=== PATIENT | male | born 1975 | race Caucasian/White ===

== ENCOUNTER 2018-08-22 08:09 | Outpatient (CLI) | payer BC ==
--- NOTE | 2018-08-22 09:48 | ULT ---
SONOGRAM ABDOMEN COMPLETE: Date: 08/22/18 HISTORY: Anemia. Fatty liver. Abdominal pain. FINDINGS: Shadowing stones are present within the gallbladder lumen. No gallbladder wall thickening or perichol ecystic fluid. Common duct is not well delineated. Not seen to be dilated. Liver is diffusely echogen ic without focal mass or intrahepatic biliary dilatation. No free fluid. Spleen is 19.6 cm without fo niurka abnormality. Shadowing echogenicity at the collecting system of each kidney have the appearance o f nonobstructing calculi. Visualized portions of the abdominal aorta, IVC, and pancreas are unremarka ble. IMPRESSION: 1. Hepatosteatosis without focal abnormality. 2. Severe splenomegaly could be related to portal venous hypertension. 3. Cholelithiasis. No evidence of acute biliary obstruction. 4. Probable nonobstructing bilateral renal calculi. POS: [facility]
== END 2018-08-22 08:10 | disposition home or self-care (01) ==
LOC: SCSULT 08:09
PROVIDERS: ATTEND Internal Medicine
DX: D50.9 Iron deficiency anemia, unspecified (principal); K76.0 Fatty (change of) liver, not elsewhere classified; K80.20 Calculus of gallbladder without cholecystitis without obstruction; R16.1 Splenomegaly, not elsewhere classified
CPT/HCPCS: 76700

== ENCOUNTER 2019-04-16 07:41 | Inpatient (IN) | payer BC ==
[2019-04-16 08:28] LABS: Anion Gap 11 mmol/L (10-20); BUN (Urea Nitrogen) 23 mg/dL (8.9-20.6); Calc. Creatinine Clearance 0 mL/min (70-130); Calcium 8.3 mg/dL (7.8-10.44); Carbon Dioxide 22 mmol/L (22-29); Chloride 107 mmol/L (98-107); Estimated GFR-MDRD Greater than 90; Glucose 124 mg/dL (70-105); Potassium 4.1 mmol/L (3.5-5.1); Sodium 136 mmol/L (136-145)
[2019-04-16 09:07] LABS: #Lymphocytes 0.9 thou/uL (1.20-3.40); #Monocytes 0.4 thou/uL (0.11-0.59); #Neutrophils 3.2 thou/uL (1.40-6.50); %Basophils 0.3 % (0.0-1.0); %Eosinophils 0.8 % (0.0-10.0); %Lymphocytes 19.2 % (21.0-51.0); %Monocytes 8.9 % (0.0-10.0); %Neutrophils 70.8 % (42.0-75.0); Hemoglobin 8.3 g/dL (14.0-18.0); Hypochromia SLIGHT = 6-15 cells (100X) (0-5/hpf); MDiff Complete? YES; Mean Corpuscular HGB CONC 31.7 g/dL (32.0-36.0); Mean Corpuscular Hemoglobin 22.7 pg (27.0-31.0); Mean Corpuscular Volume 71.5 fL (78.0-98.0); Mean Platelet Volume 9.1 fL (7.4-10.4); Microcytosis MODERATE=15-30 cells (100X) (0-5/hpf); Ovalocytes SLIGHT = 2-5 cells (100X) (0-1/hpf); Platelet Count 104 thou/uL (130-400); Platelet Morphology Comment Appears Decreased; Polychromasia SLIGHT = 2-3 cells (100X) (0-2/hpf); RBC Distribution Width 16.3 % (11.5-14.5); Red Blood Cell (RBC) Count 3.67 mill/uL (4.70-6.10); White Blood Cell (WBC) Count 4.5 thou/uL (4.8-10.8)
[2019-04-16] MEDS ORDERED: Ondansetron ODT 4 MG TAB PO PRN (10:05)
[2019-04-16] MEDS ORDERED: Calcium Carbonate 500 MG ChewTAB PO PRN (10:05)
[2019-04-16] MEDS ORDERED: Ondansetron PF 4 MG/2 ML Vial IVP PRN (10:05)
[2019-04-16] MEDS ORDERED: Cyanocobalamin (Vitamin B-12) 1,000 MCG TAB PO SCH ×2 (10:15→12:45)
[2019-04-16] MEDS ORDERED: Folic Acid 1 MG TAB PO SCH ×2 (10:15→12:45)
[2019-04-16] MEDS ORDERED: Iron Sucrose Complex 200 MG in Sodium Chloride 0.9% 250 ML 250 ML IVPB SCH (10:30)
[2019-04-16] MEDS ORDERED: Iron, Sodium Ferric Gluconate 250 MG in Sodium Chloride 0.9% 100 ML IVPB SCH (11:30)
[2019-04-16 12:12] LABS: Hemoglobin 8.9 g/dL (14.0-18.0); Platelet Count 57 thou/uL (130-400)
[2019-04-16 12:24] LABS: INR-International Normal Ratio 1.2; PTT 30.7 SEC (22.9-36.1); Prothrombin Time 15.2 SEC (12.0-14.7)
[2019-04-16 12:27] LABS: Hemoglobin 8.9 g/dL (14.0-18.0); Mean Corpuscular HGB CONC 30.3 g/dL (32.0-36.0); Mean Corpuscular Hemoglobin 22.1 pg (27.0-31.0); Mean Corpuscular Volume 73.1 fL (78.0-98.0); Mean Platelet Volume 11.5 fL (7.4-10.4); Platelet Count 57 thou/uL (130-400); RBC Distribution Width 16.6 % (11.5-14.5); Red Blood Cell (RBC) Count 4.03 mill/uL (4.70-6.10); White Blood Cell (WBC) Count 5.8 thou/uL (4.8-10.8)
[2019-04-16 12:45] VITALS: BMI 39.4
[2019-04-16] MEDS: Sodium Chloride 0.9% 1,000 ML IV SCH ×2 (12:45→19:17)
[2019-04-16 12:47] LABS: Iron 41 ug/dL (65-175); Iron Binding Capacity, Total 479 mcg/dL (261-462)
[2019-04-16 12:56] LABS: Band 1 % (5-11); Burr Cells SLIGHT = 2-5 cells (100X) (0-1/hpf); Hypochromia SLIGHT = 6-15 cells (100X) (0-5/hpf); Lymphocytes 20 % (21-51); MDiff Complete? YES; Microcytosis MODERATE=15-30 cells (100X) (0-5/hpf); Neutrophil 79 % (42-75); Ovalocytes SLIGHT = 2-5 cells (100X) (0-1/hpf); Platelet Morphology Comment Appears Decreased; Polychromasia SLIGHT = 2-3 cells (100X) (0-2/hpf)
[2019-04-16 13:14] LABS: ALT (SGPT) 20 U/L (8-55); AST (SGOT) 26 U/L (5-34); Albumin 3.7 g/dL (3.5-5.0); Alkaline Phosphatase 103 U/L (40-110); Bilirubin, Direct 0.4 mg/dL (0.1-0.3); Bilirubin, Total 0.9 mg/dL (0.2-1.2); Magnesium 1.8 mg/dL (1.6-2.6); Protein, Total 6.7 g/dL (6.0-8.3)
[2019-04-16 16:35] LABS: Hemoglobin 7.2 g/dL (14.0-18.0)
--- NOTE | 2019-04-16 19:48 | HP ---
PRIMARY CARE PHYSICIAN: Navjot. CHIEF COMPLAINT: Melena. HISTORY OF PRESENT ILLNESS: Mr. Manzanares is a 44-year-old man with a past medical history of PVCs, gastroesophageal reflux disease, and history of kidney stones, presents to the ED earlier today due to abdominal discomfort and melena over the last 2 days. He states that he had noticed a large plaque and bloody stool when he would go to the bathroom. He states that over the last year he has been taking oral iron for iron supplementation. He also reports that he has a history of a low hemoglobin that he has been followed by GI, who had wanted to perform a colonoscopy; however, he has not been able to schedule it due to various reasons. He states that he had to reschedule, but has not been able to go through with this procedure. He denied any fever, chills, any headache, blurred vision, dizziness, chest pain, palpitations, or shortness of breath. His hemoglobin on arrival was found to be 8.3, which had then improved to 8.9 on repeat. However, his platelets were also low at 104 and trended down to 57. His other lab work indicated an iron of 41 and a ferritin of 4.33. Therefore, he was started on IV iron infusion along with some IV fluids with normal saline. REVIEW OF SYSTEMS: All other systems reviewed and found to be negative unless mentioned in the HPI. PAST MEDICAL HISTORY: PVCs, GERD, and kidney stones. PAST SURGICAL HISTORY: Appendectomy. PSYCHIATRIC HISTORY: Anxiety. SOCIAL HISTORY: The patient denies alcohol, tobacco, or illicit drug use. KNOWN ALLERGIES: No known drug allergies. CURRENT HOME MEDICATIONS: 1. Omeprazole 20 mg oral daily. 2. Metoprolol 50 mg daily. PHYSICAL EXAMINATION: VITAL SIGNS: Blood pressure 108/69, pulse 96, respirations 18, temperature 98.5, and O2 saturation 100% on room air. GENERAL: The patient is awake, alert, and oriented x3. He is currently lying comfortably in bed and in no acute distress. His family is at bedside. HEENT: Atraumatic and normocephalic. Pupils are round and reactive to light. Extraocular muscles intact. Moist mucous membranes noted. NECK: Soft, supple. Trachea midline. CARDIOVASCULAR: Positive S1 and S2. Regular rate and rhythm. No murmur auscultated. RESPIRATORY: Clear to auscultation bilaterally. No wheezes, rales, or rhonchi. ABDOMEN: Soft, nontender. Bowel sounds present. EXTREMITIES: Moves all extremities equal. Pedal and radial pulses 2+ bilaterally. No edema noted. NEUROLOGIC: Cranial nerves 2 through 12 grossly intact. No focal deficits noted. Speech intact and normal. Gait not assessed. SKIN: Warm, dry, and intact. No rashes. No ulceration noted. PSYCHIATRIC: Good mood and affect. LABORATORY DATA: WBC 5.8, RBC 4.03, hemoglobin 8.9, hematocrit 29.4, and platelets 57. Reticulocyte count 3.0. PT 15.2, INR 1.2, PTT 30.7. Sodium 136, potassium 4.1, anion gap 11, BUN 23, creatinine 0.80, estimated GFR greater than 90, glucose 124. Iron 41, TIBC 479, ferritin 4.33. Magnesium 1.8, calcium 8.3, total bilirubin 0.9, direct bilirubin 0.4, AST 26, ALT 20. Vitamin B12 of 314, folate 18.9. DIAGNOSTIC IMAGING: None. ASSESSMENT AND PLAN: 1. Possible gastrointestinal bleed due to the patient's symptoms of melena and decreased hemoglobin. We will trend H and H and treat with IV iron, and if his hemoglobin trends down, we will transfuse with packed red blood cells as needed. A consult is placed for GI Services, Dr. Saleh, and we will wait for further recommendations. We will also start the patient on a PPI. 2. History of premature ventricular contractions, currently in sinus rhythm at this time. 3. History of gastroesophageal reflux disease. Continue PPI. 4. History of kidney stones, currently stable at this time. 5. Gastrointestinal prophylaxis. 6. Code status. Full code. DISPOSITION: Pending further workup and clinical findings. Job ID: [id number]
[2019-04-16] MEDS ORDERED: GoLYTELY 4,000 ml Bottle PO SCH (23:44)
[2019-04-16] MEDS ORDERED: Pantoprazole 40 MG VIAL IVP SCH (23:44)
[2019-04-17] MEDS: Sodium Chloride 0.9% 1,000 ML IV SCH ×2 (00:06→12:13)
[2019-04-17] MEDS: Pantoprazole 80 MG in Sodium Chloride 0.9% 100 ML IVP SCH ×2 (00:10→23:42)
--- NOTE | 2019-04-17 00:41 | CON ---
DATE OF CONSULTATION: 04/16/2019 CHIEF COMPLAINT: Blood in stool. HISTORY OF PRESENT ILLNESS: Mr. Manzanares is a 44-year-old man, who has had iron deficiency over the last year. He was evaluated by Dr. Sapp back in August for iron-deficiency anemia and upper and lower endoscopy were advised, however, the patient is not yet scheduled. The patient canceled the procedure multiple times. Last night, he developed some cramping, epigastric discomfort and has passed black stool last night and then multiple black stools later this afternoon mixed with red blood. He has had no vomiting, but some mild nausea. As he developed further bleeding this afternoon, he noted some dizziness and lightheadedness upon sitting up or standing. He received a unit transfusion and orthostatic symptoms improved. He has had no prior overt bleeding. PAST MEDICAL HISTORY: Gastroesophageal reflux disease, kidney stones, PVC. PAST SURGICAL HISTORY: Appendectomy. FAMILY HISTORY: Negative for GI malignancy. SOCIAL HISTORY: No alcohol, tobacco, or drugs. ALLERGIES: NO KNOWN DRUG ALLERGIES. MEDICATIONS: Prior to admission, he takes omeprazole 2 or 3 days per week. Metoprolol 50 mg daily. REVIEW OF SYSTEMS: Negative x10 systems reviewed except as stated in the history of present illness. PHYSICAL EXAMINATION: VITAL SIGNS: Temperature 98.7, blood pressure 114/73, pulse 93. GENERAL: He is in no acute distress. He is pale. Alert and oriented x3. HEENT: Eyes have no scleral icterus. Oropharynx is clear without lesions. No cervical or supraclavicular lymphadenopathy. LUNGS: Clear to auscultation bilaterally. HEART: Regular rate and rhythm without murmur. ABDOMEN: Soft, nontender, and nondistended. Bowel sounds are present. EXTREMITIES: No lower extremity edema. He did have a bowel movement that I viewed that was very dark red mix with churn operator red blood in the toilet water. LABORATORY DATA: Hemoglobin this morning was 8.3 with an MCV of 71. Repeat hemoglobin this afternoon was 7.2. He received 1 unit transfusion after that. INR 1.2. White blood cell count 5.8, platelets 57, MCV 73, bilirubin 0.9, AST 26, ALT 20, alkaline phosphatase 103, albumin 3.7, iron 41, TIBC 479, ferritin 4.3, creatinine 0.8, BUN 23. IMPRESSION: 1. Acute gastrointestinal bleed with very dark stool mixed with red stool concerning for an upper source. He did develop an episode of tachycardia and orthostatic symptoms this afternoon. These improved after transfusion. 2. Anemia of acute blood loss. His hemoglobin was around 12 back in August when he still had known iron deficiency anemia. It is unclear how much of his hemoglobin has dropped, but how rapidly between now and then. He does have significant overt bleeding now, which has been hemodynamically significant this afternoon. I will give him an additional unit of blood now and move him to the [facility]. 3. He has had mild pancytopenia with worsening thrombocytopenia. He does not have known cirrhosis at this point. He did have an ultrasound obtained by Dr. Sapp back in August that showed fatty liver and cholelithiasis and possibly splenomegaly. His albumin and bilirubin and creatinine are normal. RECOMMENDATIONS: 1. Start proton pump inhibitor drip with bolus and then drip. 2. We will plan for EGD and colonoscopy tomorrow with Dr. Sapp. 3. Given an additional unit of blood now and will follow the trend of his hemoglobin. 4. Transferred to [facility]. Job ID: [id number] MTDD
[2019-04-17 00:43] LABS: Hemoglobin 7.6 g/dL (14.0-18.0)
[2019-04-17 06:01] LABS: #Lymphocytes 0.9 thou/uL (1.20-3.40); #Monocytes 0.8 thou/uL (0.11-0.59); #Neutrophils 6.3 thou/uL (1.40-6.50); %Basophils 0.1 % (0.0-1.0); %Eosinophils 0.5 % (0.0-10.0); %Lymphocytes 11.3 % (21.0-51.0); %Monocytes 9.3 % (0.0-10.0); %Neutrophils 78.7 % (42.0-75.0); Hemoglobin 8.2 g/dL (14.0-18.0); Mean Corpuscular HGB CONC 31.7 g/dL (32.0-36.0); Mean Corpuscular Hemoglobin 24.2 pg (27.0-31.0); Mean Corpuscular Volume 76.4 fL (78.0-98.0); Mean Platelet Volume 8.7 fL (7.4-10.4); Platelet Count 109 thou/uL (130-400); RBC Distribution Width 18.3 % (11.5-14.5); White Blood Cell (WBC) Count 8.1 thou/uL (4.8-10.8)
[2019-04-17 06:18] LABS: Anion Gap 13 mmol/L (10-20); BUN (Urea Nitrogen) 17 mg/dL (8.9-20.6); Calc. Creatinine Clearance 193 mL/min (70-130); Carbon Dioxide 17 mmol/L (22-29); Chloride 109 mmol/L (98-107); Estimated GFR-MDRD Greater than 90; Glucose 147 mg/dL (70-105); Potassium 4.3 mmol/L (3.5-5.1); Sodium 135 mmol/L (136-145)
--- NOTE | 2019-04-17 07:57 | PRG ---
DATE OF SERVICE: 04/17/2019 SUBJECTIVE: The patient is seen and examined at the bedside. He has some abdominal cramps in the epigastric area. He had a little bit of bloody vomiting few hours ago. Otherwise, he is feeling okay, just tired. OBJECTIVE: VITAL SIGNS: Blood pressure is 103/84, pulse is 110-115. LUNGS: Clear. HEART: S1, S2. Tachycardic. No S3. No S4. ABDOMEN: Soft, nontender, nondistended. EXTREMITIES: No clubbing, cyanosis, or edema. NEUROLOGICAL: Examination is intact. LABORATORY DATA: Showed white count of 8.1, hemoglobin 8.2, hematocrit 26.0, and platelet count is 109. Chemistry shows sodium of 135, potassium 4.3, chloride 109, CO2 of 17, BUN 17, creatinine 0.75, glucose 147, and calcium is 8.0. IMPRESSION: 1. Gastrointestinal bleeding, most likely from the upper parts. He is on Protonix drip. He is scheduled for EGD this morning. He had 2 units of packed red blood cells transfused yesterday. 2. History of premature ventricular contractions, on metoprolol at home. 3. History of gastroesophageal reflux disease. 4. History of kidney stones, chronic, stable. 5. Thrombocytopenia, improved since the time of admission. Platelet count is up to 109 this morning. PLAN: EGD this morning. Continue IV fluids. Continue p.r.n. transfusion of packed red blood cells. Continue PPI and drip. Job ID: [id number]
[2019-04-17] MEDS: Cyanocobalamin (Vitamin B-12) 1,000 MCG TAB PO SCH (08:32)
[2019-04-17] MEDS: Folic Acid 1 MG TAB PO SCH (08:32)
[2019-04-17] MEDS ORDERED: Ondansetron HCl/PF 4 MG/2 ML Vial IVP PRN (08:54)
[2019-04-17] MEDS ORDERED: Iron Sucrose Complex 200 MG in Sodium Chloride 0.9% 250 ML 250 ML IVPB SCH (09:00)
--- NOTE | 2019-04-17 11:56 | OP ---
DATE OF PROCEDURE: 04/17/2019 PROCEDURES PERFORMED: Esophagogastroduodenoscopy with band ligation x6, colonoscopy with polypectomy, and control of hemorrhage. INDICATION FOR PROCEDURES: Hematemesis, melena. DESCRIPTION OF PROCEDURE: After the risks and benefits of the procedures were explained to the patient including risks of bleeding, infection, perforation, reactions to anesthesia, aspiration and/or pain, informed consent was obtained. The patient was then taken to the endoscopy suite, where deep sedation was administered via propofol and anesthesia support. Once adequate sedation was achieved, the patient was maneuvered into the left lateral decubitus position in anticipation of the upper endoscopy. Once in adequate position, the standard gastroscope was introduced into the mouth with intubation of the esophagus, stomach, and the proximal small intestines with the findings listed below. The patient tolerated this portion of the procedure well with no immediate perioperative complications. Upon conclusion of the procedure, all equipment was removed from the patient and the bed was rotated 180 degrees in anticipation of the colonoscopy. After a digital rectal examination was performed, the standard colonoscope was introduced into the rectum and advanced to the terminal ileum without difficulty. The quality of the prep was poor with a large amount of dark black adherent stool seen throughout the entire colon limiting visualization of the colonic mucosa. However, the views were adequate for evaluation of possible bleeding source. The patient tolerated this portion of the procedure well with no immediate perioperative complications. Upon conclusion of this portion of the procedure, all equipment was removed from the patient and he was transferred to PACU in satisfactory condition. EGD FINDINGS: Esophagus: Normal-appearing mucosa was seen in the proximal esophagus; however, esophageal varices were seen in the distal esophagus and extending into the mid esophagus. The distal esophageal varices were considered large (grade 3) that did exhibit red jean sign on two separate variceal columns at the gastroesophageal junction. There was also a varix there that did exhibit mild oozing of blood indicative of a possible GI bleeding source. Band ligation x6 was then performed with good hemostasis achieved and no observed bleeding afterwards. Otherwise, there was no evidence of erosions, ulcerations, mass, or lesions within the esophagus. Stomach: Mild diffuse mucosal erythema was seen throughout the entire stomach in a mosaic type pattern, but did not exhibit any additional abnormalities. There was no evidence of erosions, ulcerations, mass, lesions, or active/recent bleeding. A small gastric varix was seen on gastric retroflexion, but did not appear to have any evidence of active or recent GI bleeding. Duodenum: Normal-appearing mucosa was seen in both the duodenal bulb and second portion of the duodenum. There was no evidence of erosions, ulcerations, mass, lesions, or active/recent bleeding. IMPRESSION: 1. Large (grade 3) distal esophageal varices with high-risk stigmata bleeding, now status post band ligation x6. 2. Small gastric varix. 3. [id number] portal hypertensive gastropathy. COLONOSCOPY FINDINGS: Digital rectal exam: Normal findings were seen on external examination. Colon findings: A [id number] amount of adhered black stool was seen throughout the entire colon, especially within the distal colon and less so within the proximal colon. However, adequate visualization of the colonic mucosa was achieved for the evaluation of possible GI bleeding source, but inadequate for the evaluation of small mucosal lesions. Of the mucosa visualized, small black clot material was seen within the terminal ileum and extending into the cecum itself; however, the colonic mucosa exhibited mild friability to suctioning with suction hematoma was made that exhibited some mild oozing of blood, but no evidence of increased bleeding. Otherwise, normal-appearing mucosa was seen at the ileocecal valve, appendiceal orifice, cecum, ascending, transverse, descending, and sigmoid colons. A 1.5 cm semi-pedunculated polyp was seen in the rectum and completely removed with snare cautery polypectomy. It was retrieved and placed in a specimen jar for evaluation. Given his recent GI bleeding and the larger mucosal defect made, hemoclip x2 was used to approximate the mucosal defect with good hemostasis achieved. Small internal hemorrhoids were then seen on rectal retroflexion. IMPRESSION: 1. A large amount of black adherent stool was seen throughout the entire colon limiting visualization for small mucosal lesions, but adequate for the evaluation of gastrointestinal bleeding. 2. Dark clot material was seen within the terminal ileum, making an upper gastrointestinal bleeding source more likely. 3. A 1.5 cm rectal polyp, status post snare cautery polypectomy and hemoclip x2. 4. Small internal hemorrhoids (nonbleeding). RECOMMENDATIONS: 1. We will continue to trend the patient's H and H and transfuse as necessary to maintain an H and H of 7/21. 2. Continue to monitor clinically for signs of active GI bleeding. 3. Would continue pantoprazole drip for the next 24 hours and then transfer to 40 mg b.i.d. 4. Would place the patient on octreotide drip given the evidence of bleeding esophageal varices and continue this therapy for approximately 48 to 72 hours. 5. Would advance the patient's diet to clear liquids and advance slowly over the next few days. 6. The patient will need a CT scan of the liver during this hospitalization for further evaluation of possible cirrhosis and/or portal hypertension. 7. We will follow up on the biopsy results with repeat colonoscopy recommended within 1 year, given the poor colonic preparation seen today. We will continue to follow. Please call with any questions. Job ID: [id number]
[2019-04-17] MEDS: Iron, Sodium Ferric Gluconate 250 MG in Sodium Chloride 0.9% 250 ML 250 ML IVPB SCH (12:12)
[2019-04-17] MEDS: Acetaminophen 325 MG TAB PO PRN ×2 (12:14→21:57)
[2019-04-17] MEDS: Fentanyl 100 MCG/2 ML VIAL SLOW IVP PRN ×5 (12:14→21:57)
[2019-04-17] MEDS ORDERED: cefTRIAXone Sodium 2 MG in Syringe 0 ML IVPB SCH (13:18)
[2019-04-17] MEDS ORDERED: Octreotide Acetate 1,250 MCG in Sodium Chloride 0.9% 250 ML 250 ML IVPB SCH (13:18)
[2019-04-17] MEDS: cefTRIAXone\\ROCEPHIN 2 GM in Sodium Chloride 0.9% 100 ML IVPB SCH (16:39)
--- NOTE | 2019-04-17 17:59 | CT ---
EXAM: Abdomen and pelvic CT scan with contrast: HISTORY: Esophageal varices COMPARISON: 05/04/2014 FINDINGS: The visualized lung bases are clear. Liver: Nodular morphology of the liver with mild generalized heterogeneous density. Gallbladder: Moderately distended gallbladder with multiple calcified gallstones. There is pericholec ystic edema Pancreas: Unremarkable Spleen: Enlarged spleen with splenic varices Adrenal glands: Unremarkable. Kidneys: There is a punctate bilateral nephrolithiasis. Small parenchymal hypodensity of the posterio r right kidney is not confirmed as a simple cyst on the basis of this exam. No hydronephrosis. Bowel: Diffuse bowel wall thickening involving the colon with pericolonic fat stranding. Loops of sma ll bowel also demonstrate wall thickening as does the stomach. Associated edema of the intra-abdominal fat and mild ascites is present. There is a radiopaque linear density of the sigmoid colon not further characterized. Mild esophageal varices are seen. Urinary Bladder: The urinary bladder is unremarkable. Adenopathy: No adenopathy within the abdomen or pelvis. Free Air: No free air. Ascites: Mild ascites of the abdomen and pelvis. Fat-containing ventral abdominal wall hernia to the right of midline near the umbilicus. Osseous structures: No acute osseous abnormalities. IMPRESSION: Prominent wall thickening of the alimentary canal, diffusely. This may be on the basis of an infectio us/inflammatory process given the degree of wall thickening, surrounding fat stranding and ascites. Findings are most pronounced within the right hemicolon. Follow-up with colonoscopy upon resolution o f acute symptoms is necessary in order to exclude underlying colonic mass which cannot be excluded on the basis of this exam. Evidence of cirrhosis and portal hypertension with splenomegaly, splenic and esophageal varices. Distended gallbladder with cholelithiasis. Surrounding pericholecystic edema may relate to the above- described inflammation of the adjacent, traversing colon. Transcribed Date/Time: 04/17/2019 6:07 PM
--- NOTE | 2019-04-17 19:25 | CON ---
DATE OF CONSULTATION: 04/17/2019 SERVICE: Pulmonary Medicine. REASON FOR CONSULTATION: IMCU patient. HISTORY OF PRESENT ILLNESS: The patient is a 44-year-old white male with past medical history significant for cirrhosis. He came to the hospital after passing a black, tarry, sticky bowel movement followed by bright red bowel movement. He presented to the emergency department after the bloody bowel movement, and was discovered to have reduced hemoglobin. He underwent EGD and colonoscopy. The colonoscopy did not see any source of bleeding, though there was some esophageal varices. No active bleeding was identified. He was tucked into the ICU, placed on a PPI drip, and octreotide. He has demonstrated some hemodynamic stability. Earlier, he was a little dizzy on getting up, but at this point, he can get up without much difficulty. He denies any current fevers, chills, nausea, or vomiting. There is no illness prior to these events. He had a little bit of vague abdominal discomfort ever since the procedure ended. PAST MEDICAL HISTORY: 1. Gastroesophageal reflux disease. 2. Nephrolithiasis. 3. History of PVCs. 4. Esophageal varices. PAST SURGICAL HISTORY: Appendectomy. SOCIAL HISTORY: He denies any significant alcohol, tobacco, or illicit drug use. He has no exposure to chemicals, dust, asbestos, or tuberculosis otherwise. FAMILY HISTORY: Noncontributory. ALLERGIES: NO KNOWN DRUG ALLERGIES. MEDICATIONS: List of his inpatient medications was reviewed. No specific updates were made at this time. REVIEW OF SYSTEMS: General; head, ears, eyes, nose, throat; cardiovascular; respiratory; GI; ; musculoskeletal; neurologic; and skin are negative except as mentioned in the HPI. LABORATORY DATA: Hemoglobin 8.2 and stable. CBC is otherwise unremarkable except for low platelets. INR 1.2. Basic metabolic profile and liver function studies are otherwise unremarkable. B12 and folate are negative. Ferritin level was quite low at 4.33. Magnesium 1.8, calcium 8.0. MCV 76. ASSESSMENT: 1. Acute blood loss anemia. 2. Esophageal varices, status post band ligation x6. 3. Iron-deficiency anemia. DISCUSSION AND PLAN: The patient is going to be monitored in the ICU. We will get serial hemoglobin and hematocrit to make certain he does not drop off significantly. I will repeat an H and H tomorrow morning. If he demonstrates stability into tomorrow morning, he can be considered for transition to the floor if cleared by GI. Pulmonary will continue to follow in this location as he is a high risk for rebleed. Since he is tolerating p.o., IV fluids will be interrupted. 70 minutes have been devoted to this patient in various activities. I personally reviewed all imaging studies and laboratory data noted within this document. For fifty percent of this time, I was interacting with the patient at the bedside or coordinating care with the care team. For the remainder of the time I was immediately available to the patient in the hospital unit. Job ID: [id number] MTDD
[2019-04-17] MEDS ORDERED: FLU VACC QS2019-20(6MOS UP)/PF 60 MCG/0.5 ML SYRINGE IM ONE (21:00)
[2019-04-18] MEDS: Fentanyl 100 MCG/2 ML VIAL SLOW IVP PRN ×4 (00:03→06:42)
--- NOTE | 2019-04-18 03:53 | PDOC.EVN ---
Event Note - Event Note Event Note: RN called - Patient not tolerating PO - Will restart IVF @ 70 ml/hr
[2019-04-18] MEDS: Sodium Chloride 0.9% 1,000 ML IV SCH ×2 (04:04→17:53)
[2019-04-18 06:05] LABS: Hemoglobin 6.7 g/dL (14.0-18.0)
--- NOTE | 2019-04-18 08:40 | PRG ---
DATE OF SERVICE: 04/18/2019 SUBJECTIVE: The patient is seen and examined at the bedside. He feels somewhat better. He does not have much complaints to offer. He would like to go home. OBJECTIVE: VITAL SIGNS: Blood pressure is 104/65, pulse is 73, respirations are 15, O2 saturation is 95% on room air. HEENT: His sclerae are nonicteric. Conjunctivae are palish. SKIN: Palish. Oral mucosa is palish. NECK: Supple. LUNGS: Clear. HEART: S1 and S2 normal. No S3. No S4. No any murmur. ABDOMEN: Soft, nontender. Bowel sounds are present. No organomegaly. EXTREMITIES: No clubbing, cyanosis, or edema. NEUROLOGICAL: He follows my commands. He moves his all 4 extremities. There is no any motor or sensory deficits. LABORATORY DATA: Labs showed hemoglobin of 6.7, hematocrit 20.3. IMAGING STUDIES: CT of the abdomen and pelvis showed, 1. Prominent wall thickening of the alimentary can all diffusely more pronounced within the right hemicolon. 2. Evidence of cirrhosis and portal hypertension with splenomegaly, splenic and esophageal varices. 3. Distended gallbladder with cholelithiasis, surrounding pericholecystic edema. Colonoscopy findings: 1. Upper gastrointestinal bleeding most likely from prior recent varices status post esophagogastroduodenoscopy, which showed large amount of black adherent stool seen throughout the entire colon, limited visualization for small mucosal lesions. 2. Dark clot material was seen within the terminal ileum. 3. 1.5 cm rectal polyp status post snare cautery polypectomy and hemoclip x2. 4. Small internal hemorrhoids nonbleeding. This was the finding of colonoscopy. The EGD showed, 1. a. Large grade 3 distal esophageal varices with high-risk stigmata bleeding ligated x6. b. Small gastric varix. c. [id number] portal hypertensive gastropathy. IMPRESSION: 1. Upper gastrointestinal bleeding most likely from varices, status post banding and cautery. No signs of bleeding. 2. Post hemorrhage anemia with hemoglobin of 6.7. We will transfuse him with 1 unit of packed red blood cells. If he tolerates that, we will give him additional unit later today. 3. Gallbladder cholelithiasis with some pericholecystic fluid. Clinically, not looking like cholecystitis, but we will leave this up to the Gastrointestinal specialist to make decision whether this needs to be removed. 4. History of kidney stones. 5. Most likely liver cirrhosis of unknown etiology. The patient is not a drinker. 6. Thrombocytopenia most likely related to liver cirrhosis and hypersplenism. PLAN: Plan is to continue octreotide for additional 48 hours. Continue IV fluids at 70 mL/h. Transfuse him with 1 unit of packed red blood cells this morning and probably additional unit later today. Continue PPI, which will be switched from IV drip to IV push every 12 hours. Serial H and Hs. Job ID: [id number]
[2019-04-18] MEDS: Cyanocobalamin (Vitamin B-12) 1,000 MCG TAB PO SCH (09:58)
[2019-04-18] MEDS: Folic Acid 1 MG TAB PO SCH (09:59)
[2019-04-18] MEDS: Iron, Sodium Ferric Gluconate 250 MG in Sodium Chloride 0.9% 250 ML 250 ML IVPB SCH (10:01)
--- NOTE | 2019-04-18 10:37 | PRG ---
DATE OF SERVICE: 04/18/2019 SERVICE: Pulmonary Medicine. INTERVAL HISTORY: The patient is doing really well from respiratory standpoint. Denies any current chest pain, fevers, chills, nausea, vomiting, or diarrhea. With bowel prep, his bowel movements clear. Since then, he has not had any additional bowel movements. He is not having any lightheadedness or dizziness. PHYSICAL EXAMINATION: VITAL SIGNS: Afebrile, pulse 94, blood pressure 95/72, respirations 19, and saturation 100% on room air. GENERAL: The patient is awake and alert, in no apparent distress. LUNGS: Decent air entry. No prolonged expiratory phase or wheezing is appreciated. HEART: Normal rate, regular. ABDOMEN: Soft, nontender, and nondistended. Bowel sounds are positive. MUSCULOSKELETAL: No cyanosis or clubbing. There is no pitting in bilateral lower extremities. NEUROLOGIC: Grossly nonfocal. LABORATORY DATA: Hemoglobin is trickle down to 6.7. Sodium 135 and chloride 109. Bicarb 17 and gently downtrending, anion gap is excellent at 13. Creatinine 0.75. IMAGING STUDIES: CT of the abdomen and pelvis demonstrates cirrhotic morphology of the liver. Cholelithiasis is also noted. There is pericholecystic fluid, possibly secondary to inflammation of the transverse colon. ASSESSMENT: 1. Acute blood loss anemia. 2. Esophageal varices, status post band ligation x6. 3. Iron deficiency anemia. 4. Cirrhosis, new diagnosis. DISCUSSION AND PLAN: The patient is doing fine from respiratory standpoint. He got a unit of blood this morning. We are going to trend his hemoglobin after this. If he has an appropriate response to the unit that he receives, he can be considered for transition to the floor. When he arrives on the floor, he will have no further requirements for inpatient Pulmonary or Critical Care opinion, and we will sign off. Pulmonary will continue to follow in this location, however. Job ID: [id number] [facility]
--- NOTE | 2019-04-18 11:59 | PRG ---
DATE OF SERVICE: 04/18/2019 REASON FOR CONSULTATION: Melena, hematemesis, cirrhosis. SUBJECTIVE: Overnight, the patient did not have any acute events or problems. He states that his chest pain that he experienced after the EGD with banding yesterday has now resolved. He did not have any further episodes of melena overnight nor does he describe any nausea, vomiting, fevers, chills, abdominal pain, hematemesis, melena, or hematochezia. He has been able to tolerate a clear liquid diet thus far without any difficulty. OBJECTIVE: VITAL SIGNS: Temperature 98.1, pulse 94, blood pressure 98/64, respiratory rate 16, saturating 98% on room air. GENERAL: The patient was lying in bed, in no acute distress. Alert and oriented x4. CARDIOVASCULAR: Regular rate and rhythm. RESPIRATORY: Clear to auscultation bilaterally. ABDOMEN: Normoactive bowel sounds. Soft, nontender, nondistended. EXTREMITIES: No cyanosis, clubbing, or edema. LABORATORY DATA: CBC with hemoglobin of 6.7, hematocrit of 20.3. No other labs are available for review. IMAGING DATA: CT of the abdomen and pelvis was obtained on April 17, 2019, which showed nodular morphology of the liver with mild generalized heterogeneous density. There was also moderately distended gallbladder with multiple calcified gallstones with pericholecystic edema. There was evidence of splenomegaly with splenic varices also seen. Diffuse bowel wall thickening was also seen involving the entire colon with pericolonic fat stranding. Loops of small bowel also demonstrated wall thickening as does the stomach. Mild ascites was also present, and there was a radiopaque linear density in the sigmoid colon that could not be further characterized (consistent with hemoclip placement). Mild esophageal varices were also seen. ASSESSMENT AND PLAN: The patient is a 44-year-old male with past medical history of gastroesophageal reflux disease, kidney stones, and premature ventricular contractions, presenting with hematemesis, melena, cirrhotic morphology, esophageal varices, splenomegaly, ascites, and thrombocytopenia, all consistent with cirrhosis. 1. Cirrhosis. The patient was initially seen in the clinic earlier this year with complaints of iron-deficiency anemia with a right upper quadrant ultrasound obtained at that time showing mild splenomegaly. However, the patient was seen approximately 2 days ago with complaints of melenic type stools concerning for GI bleeding. He subsequently underwent both an EGD and colonoscopy with the upper endoscopy showing the presence of large esophageal varices with high-risk stigmata of bleeding. He subsequently underwent band ligation x6 with good hemostasis and no episodes of further bleeding afterwards. CT scan obtained on April 17, 2019, showed cirrhotic morphology, splenomegaly, and ascites, all consistent with cirrhosis with resultant portal hypertension. At this time, he is presenting with decompensated disease, given the presence of esophageal varices and mild ascites. His most recent MELD score calculation is at 12 with a Child-Leyva classification A/B. At this time, the most likely reason for his formation of cirrhosis in this patient would be nonalcoholic fatty liver disease, but other etiologies for cirrhosis need to be ruled out at this time. Recommendations;. a. Would proceed with a full liver workup for evaluation of other underlying liver disease that could cause cirrhosis. b. The patient will need repeat imaging of the liver in approximately 6 months for further screening for hepatocellular carcinoma. c. Would advise the patient to follow up in the GI Clinic within the next 3 to 4 weeks. 2. Esophageal varices. The patient initially presented to the hospital with complaints of melena, anemia, and hematemesis. He subsequently underwent EGD on April 17, 2019, which showed large (grade 3) esophageal varices in the distal esophagus, that underwent subsequent band ligation x6 due to the presence of red jean sign and other high-risk stigmata of bleeding. In the immediate postoperative period, the patient is doing well with no further episodes of melena, although he did have a continued drop in his H and H, which may be a collaboration. Recommendations;. a. Would continue to trend his H and H and transfuse as necessary to maintain an H and H of 7/21. b. Continue to monitor clinically for signs of active GI bleeding. c. Would continue the octreotide for a total duration of therapy of 48 to 72 hours. d. Would transfer the patient from PPI drip to pantoprazole 40 mg IV b.i.d. e. Would continue antibiotic support in light of cirrhotic with recent GI bleeding. f. The patient will probably need to be transferred from metoprolol to a nonselective beta-margarette either on discharge or shortly after discharge for primary prophylaxis of further esophageal varix bleeding. g. We will probably need a repeat EGD with evaluation of the varices in approximately 3 to 4 weeks. We will continue to follow. Please call with any questions. Job ID: [id number]
[2019-04-18] MEDS: cefTRIAXone\\ROCEPHIN 2 GM in Sodium Chloride 0.9% 100 ML IVPB SCH (14:34)
[2019-04-18 15:11] LABS: Hemoglobin 6.1 g/dL (14.0-18.0)
[2019-04-18] MEDS ORDERED: traMADol HCl 50 MG TAB PO PRN (17:23)
[2019-04-18 19:15] VITALS: BP 111/65
[2019-04-18] MEDS: Pantoprazole 40 MG VIAL IVP SCH (20:42)
[2019-04-18 22:04] LABS: Hemoglobin 8.7 g/dL (14.0-18.0)
[2019-04-19 05:17] LABS: Hemoglobin 8.2 g/dL (14.0-18.0)
[2019-04-19] MEDS: Folic Acid 1 MG TAB PO SCH (09:32)
[2019-04-19] MEDS: Iron, Sodium Ferric Gluconate 250 MG in Sodium Chloride 0.9% 250 ML 250 ML IVPB SCH (09:32)
[2019-04-19] MEDS: Cyanocobalamin (Vitamin B-12) 1,000 MCG TAB PO SCH (09:32)
[2019-04-19] MEDS: Pantoprazole 40 MG VIAL IVP SCH ×2 (09:33→20:12)
[2019-04-19] MEDS: Sodium Chloride 0.9% 1,000 ML IV SCH (09:35)
[2019-04-19 10:15] LABS: Anion Gap 11 mmol/L (10-20); BUN (Urea Nitrogen) 9 mg/dL (8.9-20.6); Calc. Creatinine Clearance 181 mL/min (70-130); Calcium 8.1 mg/dL (7.8-10.44); Carbon Dioxide 19 mmol/L (22-29); Chloride 107 mmol/L (98-107); Estimated GFR-MDRD Greater than 90; Glucose 97 mg/dL (70-105); Potassium 3.6 mmol/L (3.5-5.1); Sodium 133 mmol/L (136-145)
--- NOTE | 2019-04-19 11:23 | PRG ---
DATE OF SERVICE: 04/19/2019 SUBJECTIVE: This morning, the patient is awake, alert, and responsive, in no distress. OBJECTIVE: VITAL SIGNS: Saturations are 100% room air, blood pressure 112/80, pulse , respiratory rate 18. CHEST: No wheezing, crackles. CARDIAC: Normal S1, S2. No gallops. ABDOMEN: No masses. LABORATORY DATA: H and H are stable. IMPRESSION: GI bleeding, cirrhosis. No respiratory distress. Pulmonary nothing additional to offer. Input from GI. Job ID: [id number]
[2019-04-19] MEDS: cefTRIAXone\\ROCEPHIN 2 GM in Sodium Chloride 0.9% 100 ML IVPB SCH (13:47)
--- NOTE | 2019-04-19 15:02 | PRG ---
DATE OF SERVICE: 04/19/2019 SUBJECTIVE: Patient is seen and examined at the bedside. He is significantly better. He has more energy. He was able to get up and walk. He would like to go to a different part of the hospital. He is quite tired of being in the same room. OBJECTIVE: VITAL SIGNS: Blood pressure is 112/80, pulse is 82, respiratory rate is 17, O2 saturation is 99% on room air. HEENT: His head is atraumatic and normocephalic. Eyes are PERRLA. Sclerae are nonicteric. Conjunctivae are still pale. Oral mucosa is moist. NECK: Supple. Obese. LUNGS: Clear. HEART: S1 and S2 normal. ABDOMEN: Soft. Mildly distended. No guarding. No masses. Bowel sounds are present. EXTREMITIES: No clubbing, cyanosis, or edema. NEUROLOGICAL: He is alert and oriented x4. There are no any motor deficits. LABORATORY DATA: Hemoglobin of 8.2 this morning and hematocrit 24.0. Sodium of 133, potassium 3.6, chloride 107, CO2 of 19, BUN 9, creatinine 0.80, glucose 97, and calcium 8.1. IMPRESSION: 1. Upper gastrointestinal bleeding, most likely from varices, status post banding and cauterization x6 by GI. 2. Post-hemorrhage anemia. Hemoglobin at 8.2 this morning. He received total of 4 units of packed red blood cells. 3. Gallbladder, cholelithiasis with some pericholecystic fluid, but asymptomatic. 4. History of kidney stones. 5. Liver cirrhosis. 6. Thrombocytopenia, most likely related to hypersplenism. PLAN: Plan is to stop his IV fluids. Move him out to medical bed if he is stable tonight. Check his hemoglobin and hematocrit level at 1500 hours today and tomorrow morning. Continue IV octreotide. He received one dose of iron IV, and he will continue on Protonix IV piggyback every 12 hours, and perioperative assistant will make recommendations regarding advancing diet. Job ID: [id number]
[2019-04-19 15:10] LABS: Hemoglobin 8.2 g/dL (14.0-18.0)
--- NOTE | 2019-04-20 00:52 | PRG ---
DATE OF SERVICE: 04/19/2019 REASON FOR CONSULTATION: Melena, hematemesis, and cirrhosis. SUBJECTIVE: Overnight, the patient did not have any problems with no acute events occurring within the last 24 hours. He did have some mild increased chest discomfort this morning, but that resolved over the course of 30 minutes and has not had any further recurrences today. He has not had any further episodes of melena nor does he describe any nausea, vomiting, fevers, chills, abdominal pain, hematemesis, or hematochezia. A fair amount of time was spent speaking with the patient about the etiology of cirrhosis, dietary measures surrounding a diagnosis of cirrhosis, and appropriate followup for the diagnosis as well. OBJECTIVE: VITAL SIGNS: Temperature 98.4, pulse 85, blood pressure 124/73, respiratory rate 11, saturating 98% on room air. GENERAL: The patient was lying in bed, in no acute distress. Alert and oriented x4. CARDIOVASCULAR: Regular rate and rhythm. RESPIRATORY: Clear to auscultation bilaterally. ABDOMEN: Normoactive bowel sounds. Soft, nontender, nondistended. EXTREMITIES: No cyanosis, clubbing, or edema. LABORATORY DATA: CBC with a hemoglobin of 8.2, hematocrit 24. Chemistry with sodium of 133, potassium 3.6, chloride 107, CO2 of 19, BUN 9, creatinine 0.8, glucose 97. IMAGING DATA: No current GI imaging is available for review. ASSESSMENT AND PLAN: The patient is a 44-year-old male, with past medical history of gastroesophageal reflux disease, kidney stones, and premature ventricular contractions, presenting with hematemesis, melena, cirrhotic morphology, and bleeding esophageal varices consistent with cirrhosis. Cirrhosis. The patient initially presented with 2 days of melenic-type stools in light of a history of iron-deficiency anemia concerning for gastrointestinal bleeding source. He subsequently underwent both EGD and colonoscopy, with the EGD showing the presence of large esophageal varices with high-risk stigmata of bleeding. He subsequently underwent band ligation x6 with good hemostasis achieved and no further bleeding episodes since then and stabilization of his H and H. At this time, imaging is consistent with cirrhotic morphology and when coupled with splenomegaly, ascites, and the presence of esophageal varices is consistent with portal hypertension secondary to cirrhosis of the liver. At this time, he is presenting with decompensated disease given the presence of esophageal varices and mild ascites on imaging. An updated MELD score could not be obtained today due to the lack of an updated INR. Recommendations: 1. I have ordered a full liver workup for evaluation of possible underlying liver pathology that would contribute to cirrhosis other than fatty liver disease. 2. The patient will need a repeat imaging of the liver in approximately 6 months for further screening for HCC. 3. We would advise follow up in the GI clinic in 3 to 4 weeks after discharge. Esophageal varices. The patient initially presented to the hospital with complaints of melena, anemia, and hematemesis. He subsequently underwent EGD on April 17, 2019, which showed large esophageal varices. They were intervened upon with band ligation x6. Since that time, he has not had any further episodes of bleeding and stabilization in his H and H. Recommendations: 1. We would continue to trend his H and H and transfuse as necessary to maintain an H and H of 7 and 21. 2. Continue to monitor clinically for signs of active GI bleeding. 3. We would continue the octreotide for a total duration of therapy of 72 hours (we would discontinue this tomorrow). 4. We would continue the patient on pantoprazole 40 mg b.i.d., but can transfer to an oral formulation. 5. We would continue antibiotic support in light of a diagnosis with cirrhosis with gastrointestinal bleeding. If the patient is to be discharged, I would discharge him with continuation of antibiotic therapy for a total duration of therapy of 7 days and can use Cipro in order to do so. 6. We would consider changing the patient from metoprolol to a nonselective beta-margarette (propranolol or nadolol) prior to discharge. However, given his lower blood pressures observed today, this may need to wait until seen in the GI clinic. 7. We will need a repeat EGD in approximately 3 to 4 weeks for a repeat evaluation of the varices and possible band ligation. We will continue to follow. Please call with any question. Job ID: [id number]
[2019-04-20 05:23] LABS: Hemoglobin 8.3 g/dL (14.0-18.0)
[2019-04-20 05:55] LABS: HBSAB Concentration 0.71 mIU/mL; HBSAg Index 0.15 S/CO (0-0.99); Hep B Core Total Ab Non-Reactive (NonReactive); Hep B Core Total Index 0.06 S/CO (0-0.79); Hep B Surf AB Non-Reactive (NonReactive); Hep B Surf Ag Non-Reactive S/CO (NonReactive); Hep C IgG Ab Non-Reactive (NonReactive); Hep C Index 0.07 S/CO (0-0.79)
[2019-04-20] MEDS: Iron, Sodium Ferric Gluconate 250 MG in Sodium Chloride 0.9% 250 ML 250 ML IVPB SCH (09:21)
[2019-04-20] MEDS: Pantoprazole 40 MG VIAL IVP SCH (09:21)
[2019-04-20] MEDS: Folic Acid 1 MG TAB PO SCH (09:21)
[2019-04-20] MEDS: Cyanocobalamin (Vitamin B-12) 1,000 MCG TAB PO SCH (09:22)
[2019-04-20] MEDS ORDERED: Nadolol 40 MG TAB PO SCH (10:30)
[2019-04-20 11:10] VITALS: TEMP 98
--- NOTE | 2019-04-20 11:18 | PRG ---
DATE OF SERVICE: 04/20/2019 SUBJECTIVE: Alexandre Manzanares appears to be doing well. OBJECTIVE: VITAL SIGNS: Temperature 98, sats are 98% on room air, blood pressure . He is getting iron infusion. H and H 8 and 24. IMPRESSION: Gastrointestinal bleed, obesity, and renal failure. PLAN: Pulmonary espinoza, disposition home any time. Job ID: [id number]
--- NOTE | 2019-04-20 14:12 | PDOC.EVN ---
Event Note - Event Note Event Note: Discharge summary dictated. #[id number]
--- NOTE | 2019-04-20 14:38 | DIS ---
DATE OF ADMISSION: 04/16/2019 DATE OF DISCHARGE: 04/20/2019 DISCHARGE DIAGNOSES: 1. Acute on chronic blood loss anemia. 2. Iron deficiency anemia. 3. Upper gastrointestinal bleeding. 4. Variceal bleeding. 5. Esophageal varices. 6. Gastric varices. 7. Ncfk-cy-ehajljld portal hypertensive gastropathy. 8. Liver cirrhosis with decompensation. 9. Ascites. 10. Cholelithiasis with distended gallbladder. 11. Intestinal wall thickening. 12. Portal hypertension. 13. Nephrolithiasis without obstruction. 14. Gastroesophageal reflux disease. 15. Thrombocytopenia. 16. Hypersplenism. 17. Rectal polyp. 18. Small internal hemorrhoids. CONSULTS: 1. Gastroenterology. 2. Pulmonary and Critical Care. PROCEDURES PERFORMED: 1. Esophagogastroduodenoscopy with band ligation of esophageal varices x6. 2. Colonoscopy with rectal polyp removal with cauterization. HOSPITAL COURSE: A 44-year-old male with known history of iron deficiency anemia on iron as well as PVCs on metoprolol, admitted due to acute onset of abdominal pain associated with melena and weakness. Impression of GI bleeding was made and GI consult was obtained. The patient subsequently have endoscopic evaluation with upper esophageal gastroduodenoscopy as well as colonoscopy. EGD showed esophageal varices as well as gastric varices and portal hypertensive gastropathy. The patient had ligation banding of esophageal varices x6. He also was found to have rectal polyp on colonoscopy as well as small internal hemorrhoids. Rectal polyp was removed and bleeding controlled with cauterization. Given finding of varices, diagnosis of possible cirrhosis was made and the patient was further evaluated with CT scan of the abdomen which showed liver cirrhosis with portal hypertension as well as splenomegaly. The patient also was found to have cholelithiasis with distention of gallbladder as well as mild edema, which was thought to be related to the observed global intestinal wall thickening. The patient also was found to have ascites. During this hospitalization, the patient with acute blood loss anemia was transfused 4 units of packed red blood cells. He initially was treated with IV fluid with improvement. The patient also was treated with Protonix infusion as well as octreotide and improved and was hemodynamically stable. He remained stable and was subsequently discharged home. Further evaluation and treatment to be undertaken on outpatient basis. PHYSICAL EXAMINATION: VITAL SIGNS: Temperature 98.0, pulse 91, respiratory rate 17, SpO2 of 98, blood pressure is 118/74. GENERAL: Middle-aged male, in no obvious distress. Afebrile. Anicteric. Acyanotic. HEENT: Normocephalic and atraumatic. Oral mucosa is moist. CARDIOVASCULAR: Regular rhythm and rate. Normal heart sounds one and two. RESPIRATORY: Fair air entry bilaterally with no obvious crackle or rhonchi or use of accessory muscles. GI: Obese, soft, nontender, nondistended with normal bowel sounds. EXTREMITIES: Grossly normal looking, atraumatic with no edema or erythema. Distal pulses are palpable. RACKMAN: Conscious, alert, and oriented x3 with appropriate mental status. DISCHARGE CONDITION: Improved. DISCHARGE DISPOSITION: Home. DISCHARGE MEDICATIONS: 1. Metoprolol 50 mg daily at bedtime. 2. Ciprofloxacin 500 mg p.o. b.i.d. for 5 days. 3. Cyanocobalamin 1000 mcg p.o. daily. 4. Folic acid 1 mg p.o. daily. 5. Protonix 40 mg p.o. b.i.d. FOLLOWUP: 1. with PCP in 1 week. 2. With GI in 2 weeks'. This discharge took more than 36 minutes. Job ID: [id number]
[2019-04-20 17:10] LABS: ANA Symphony (Qualitative) Negative (Negative); ANA Symphony (Quantitative) 0.2 Ratio (< 0.7 Negative); EliA Vaculitis New Method **** NEW METHOD ****; Mitochondrial Ab 0.6 U/mL (<4 Negative); dsDNA IgG Antibody 0.8 IU/mL (<10 Negative)
== END 2019-04-20 14:15 | disposition home or self-care (01) | DRG 441 ==
LOC: ERS 07:41 → OBSVTOIN 11:20 → 2SW 11:20 → IMCU/EMU 23:02
PROVIDERS: ADMIT Internal Medicine; ATTEND Internal Medicine
PROC: 30233N1 Transfusion of Nonautologous Red Blood Cells into Peripheral Vein, Percutaneous Approach (ICD-10-PCS; 2019-04-16)
PROC: 06L38CZ Occlusion of Esophageal Vein with Extraluminal Device, Via Natural or Artificial Opening Endoscopic (ICD-10-PCS; principal; 2019-04-17)
PROC: 0DBP8ZZ Excision of Rectum, Via Natural or Artificial Opening Endoscopic (ICD-10-PCS; 2019-04-17)
DX: K76.6 Portal hypertension (principal); I85.11 Secondary esophageal varices with bleeding; D62 Acute posthemorrhagic anemia; R18.8 Other ascites; K62.1 Rectal polyp; K31.89 Other diseases of stomach and duodenum; I86.4 Gastric varices; K74.60 Unspecified cirrhosis of liver; K64.8 Other hemorrhoids; D50.9 Iron deficiency anemia, unspecified; K80.20 Calculus of gallbladder without cholecystitis without obstruction; N20.0 Calculus of kidney; K21.9 Gastro-esophageal reflux disease without esophagitis; F41.9 Anxiety disorder, unspecified; E66.9 Obesity, unspecified; Z68.39 Body mass index [BMI] 39.0-39.9, adult; Z79.899 Other long term (current) drug therapy
CPT/HCPCS: 36415; 36416; 36430; 74177; 80048; 80076; 82103; 82105; 82390; 82607; 82728; 82746; 83516; 83540; 83550; 83735; 85014; 85018; 85025; 85046; 85060; 85610; 85730; 86038; 86225; 86704; 86706; 86803; 86850; 86900; 86901; 87340; 88305; 90471; 90686; 96360; 96361; C9113; G0008; J0696; J2354; J2405; J2916; J3010; J3490; J7050; P9016

== ENCOUNTER 2019-05-09 12:19 | Emergency (ER) | payer BC ==
[2019-05-09 13:16] LABS: Bacteria/HPF None Seen HPF (None Seen); Bilirubin Negative (Negative); Blood, Urine 1+ (Negative); Clarity Clear (Clear); Glucose, Urine (Dipstick) Normal (Negative); Leukocyte Negative Leu/uL (Negative); Nitrite Negative (Negative); Protein, Urine (Dipstick) Negative (Neg-Trace); RBC/HPF 0-3 HPF (0-3); Squamous Epithelial None Seen HPF (0-3); Urobilinogen Normal mg/dL (Less than 2); WBC/HPF None Seen HPF (0-3)
[2019-05-09 15:14] LABS: Hemoglobin 11.7 g/dL (14.0-18.0); Mean Corpuscular HGB CONC 31.2 g/dL (32.0-36.0); Mean Corpuscular Hemoglobin 26.5 pg (27.0-31.0); Mean Corpuscular Volume 84.9 fL (78.0-98.0); Mean Platelet Volume 9.5 fL (7.4-10.4); Platelet Count 72 thou/uL (130-400); RBC Distribution Width 20.8 % (11.5-14.5); Red Blood Cell (RBC) Count 4.41 mill/uL (4.70-6.10); White Blood Cell (WBC) Count 2.9 thou/uL (4.8-10.8)
[2019-05-09 15:15] LABS: #Lymphocytes 0.4 thou/uL (1.20-3.40); #Monocytes 0.3 thou/uL (0.11-0.59); #Neutrophils 2.2 thou/uL (1.40-6.50); %Basophils 0.2 % (0.0-1.0); %Eosinophils 0.6 % (0.0-10.0); %Lymphocytes 12.5 % (21.0-51.0); %Monocytes 11.2 % (0.0-10.0); %Neutrophils 75.5 % (42.0-75.0)
[2019-05-09 15:20] LABS: ALT (SGPT) 56 U/L (8-55); AST (SGOT) 56 U/L (5-34); Albumin 4.4 g/dL (3.5-5.0); Alkaline Phosphatase 132 U/L (40-110); Anion Gap 17 mmol/L (10-20); BUN (Urea Nitrogen) 10 mg/dL (8.9-20.6); Bilirubin, Total 1.4 mg/dL (0.2-1.2); Calc. Creatinine Clearance 0 mL/min (70-130); Calcium 9.6 mg/dL (7.8-10.44); Carbon Dioxide 20 mmol/L (22-29); Chloride 104 mmol/L (98-107); Estimated GFR-MDRD 77; Globulin 3.4 g/dL (2.4-3.5); Glucose 115 mg/dL (70-105); Potassium 3.8 mmol/L (3.5-5.1); Protein, Total 7.8 g/dL (6.0-8.3); Sodium 137 mmol/L (136-145)
[2019-05-09] MEDS ORDERED: Ketorolac Tromethamine 30 MG/ML VIAL ONE (15:22)
[2019-05-09] MEDS ORDERED: Morphine 4 MG/ML VIAL ONE (15:22)
[2019-05-09] MEDS ORDERED: Ondansetron PF 4 MG/2 ML Vial ONE (15:22)
--- NOTE | 2019-05-09 15:35 | CT ---
CT ABDOMEN AND PELVIS WITHOUT CONTRAST STONE PROTOCOL 05/09/19 HISTORY: Right flank pain. COMPARISON: CT abdomen and pelvis 04/17/19. FINDINGS: Lung bases are clear. No pericardial effusion. There is cholelithiasis. The spleen is markedly enlarged. Mild perisplenic varices. The liver is small. There is mixed attenua tion of the splenic vein although evaluation is limited without intravenous contrast. There is an omentum containing right sided ventral hernia with some mild congestive changes. There is mild wall thickening congestive changes of the ascending colon. Cholelithiasis. Nonobstructive 2 x 4 mm left interpolar renal calculus. Mild obstructive 1 x 2 mm right interpolar re nal calculus. Hypodensity posterior cortex interpolar right kidney is similar. New from the comparison examination appear to be two separate small calculi of the right ureterovesic ular junction, one measuring 1 x 2 and the other measuring 2 x 4 mm. Mild right sided perinephric str anding and periureteral stranding. No left sided hydroureteronephrosis. IMPRESSION: Partially obstructive calculi at the right ureterovesicular junction measuring up to 4 mm with mild r ight sided hydroureteronephrosis and perinephric stranding. Remainder of the findings is similar to t 04/17/19 study. POS: [facility]
[2019-05-09 15:37] LABS: Hypochromia SLIGHT = 6-15 cells (100X) (0-5/hpf); MDiff Complete? YES; Ovalocytes SLIGHT = 2-5 cells (100X) (0-1/hpf); Platelet Morphology Comment Appears Decreased; Polychromasia SLIGHT = 2-3 cells (100X) (0-2/hpf); Schistocytes SLIGHT = 2-5 cells (100X) (0-1/hpf); Tear Drops SLIGHT = 2-5 cells (100X) (0-1/hpf)
== END 2019-05-09 17:16 | disposition home or self-care (01) ==
LOC: ERS 12:19
DX: N20.1 Calculus of ureter (principal); K21.9 Gastro-esophageal reflux disease without esophagitis; F41.9 Anxiety disorder, unspecified; Z79.899 Other long term (current) drug therapy
CPT/HCPCS: 74176; 80053; 81003; 81015; 85025; 87086; 96361; 96374; 96375; J1885; J2270; J2405

== ENCOUNTER 2019-05-16 09:07 | Day surgery (SDC) | payer BC ==
[2019-05-16] MEDS ORDERED: Fentanyl 100 MCG/2 ML VIAL ONE (11:41)
[2019-05-16] MEDS ORDERED: PROPOFOL 200 MG/20 ML VIAL ONE (11:51)
--- NOTE | 2019-05-16 16:17 | OP ---
DATE OF PROCEDURE: 05/16/2019 PROCEDURE PERFORMED: Esophagogastroduodenoscopy with band ligation x2. INDICATION FOR PROCEDURE: History of bleeding, esophageal varices, cirrhosis. DESCRIPTION OF PROCEDURE: After the risks and benefits of the procedure were explained to the patient including risks of bleeding, infection, perforation, reactions to anesthesia, aspiration, and/or pain, informed consent was obtained. The patient was then taken to the endoscopy suite, and after being placed in the left lateral decubitus position, deep sedation was administered via propofol and anesthesia support. Once adequate sedation was achieved, the standard gastroscope was introduced into the mouth with intubation of the esophagus, stomach, and the proximal small intestines with the findings listed below. The patient tolerated the procedure well with no immediate perioperative complications. Upon conclusion of the procedure, all equipment was removed from the patient and he was transferred to Day Stay in satisfactory condition. FINDINGS: Esophagus: Normal-appearing mucosa was seen in the proximal mid esophagus; however, large (grade 2) esophageal varices were seen in the distal esophagus without any high-risk stigmata of bleeding. Given his recent history of esophageal varix bleeding, band ligation was then performed with 2 bands placed with good hemostasis achieved. Otherwise, there was no evidence of erosions, ulcerations, mass, lesions, or active/recent bleeding. A small amount of scar tissue in a radial type pattern was also seen in the distal esophagus, consistent with prior band ligation. 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 They did not exhibit any evidence of active or recent bleeding. Otherwise, there was no evidence of erosions, ulcerations, mass lesions, or active/recent bleeding. Duodenum: Normal-appearing mucosa was seen in both the duodenal bulb and second portion of the duodenum. There was no evidence of erosions, ulcerations, mass lesions, or active/recent bleeding. IMPRESSION: 1. Large (grade 2) distal esophageal varices without high-risk stigmata bleeding status post band ligation x2. 2. Small nonbleeding gastric varix. 3. Normal-appearing gastric mucosa except for small petechiae submucosal hemorrhages in the pre-pyloric region, consistent with gastric antral vascular ectasia. RECOMMENDATIONS: 1. We would continue the patient on nadolol 20 mg daily and titrate to target heart rate of 55 to 65 beats per minute or maintaining SBP greater than [address] We would place the patient on a full liquid diet for the next 24 hours, then advance diet as tolerated. 3. We would repeat the EGD in 6 weeks for re-evaluation of the esophageal varices and possible band ligation at that time for eradication of esophageal varices. 4. We would continue with low-sodium diet. 5. We would follow up in the GI Clinic in approximately 3 to 4 months for further maintenance/evaluation of cirrhosis. Job ID: [id number]
== END 2019-05-16 12:15 | disposition home or self-care (01) ==
LOC: SDC 09:07
PROVIDERS: ATTEND Internal Medicine
PROC: 06L38CZ Occlusion of Esophageal Vein with Extraluminal Device, Via Natural or Artificial Opening Endoscopic (ICD-10-PCS; principal; 2019-05-16)
DX: K74.60 Unspecified cirrhosis of liver (principal); I85.10 Secondary esophageal varices without bleeding; D50.9 Iron deficiency anemia, unspecified; K21.9 Gastro-esophageal reflux disease without esophagitis
CPT/HCPCS: J2704; J3010

== ENCOUNTER 2019-07-04 06:59 | Day surgery (SDC) | payer BC ==
[2019-07-03 08:31] VITALS: BMI 35.5
--- NOTE | 2019-07-04 09:38 | OP ---
DATE OF PROCEDURE: 07/04/2019 INDICATIONS FOR PROCEDURE: History of cirrhosis, prior history of bleeding esophageal varices, band ligation to eradication. PROCEDURE PERFORMED: Esophagogastroduodenoscopy (diagnostic). DESCRIPTION OF PROCEDURE: After the risks and benefits of the procedure were explained to the patient including risks of bleeding, infection, perforation, reactions to anesthesia, aspiration, and/or pain, informed consent was obtained. The patient was then taken to the endoscopy suite, and after being placed in the left lateral decubitus position, deep sedation was administered via propofol and anesthesia support. Once adequate sedation was achieved, the standard gastroscope was introduced into the mouth with intubation of the esophagus, stomach, and the proximal small intestines with the findings listed below. The patient tolerated the procedure well with no immediate perioperative complications. Upon conclusion of the procedure, all equipment was removed from the patient and he was transferred to Day Stay in satisfactory condition. FINDINGS: Esophagus: Normal-appearing mucosa was seen in the proximal and mid esophagus. Small (grade 1) esophageal varices were seen in the distal esophagus without any high-risk stigmata of bleeding. There was also a moderate amount of whitish-appearing mucosa in the distal esophagus in a radial type pattern, consistent with prior band ligation and scar tissue formation. Otherwise, there was no evidence of erosions, ulcerations, mass lesions, or active/recent bleeding. Stomach: Normal-appearing mucosa was seen in the gastric cardia, fundus, body, greater curvature, and incisura. 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 They did not exhibit any evidence of active or recent bleeding. Otherwise, there was no evidence of erosions, ulcerations, mass lesions, or active/recent bleeding. No gastric varices were seen on gastric retroflexion. Duodenum: Normal-appearing mucosa was seen in both the duodenal bulb and second portion of the duodenum. There was no evidence of erosions, ulcerations, mass lesions, or active/recent bleeding. IMPRESSION: 1. Small (grade 1) distal esophageal varices without high-risk stigmata of bleeding. No band ligation performed during this evaluation. 2. No evidence of gastric varices seen on retroflexion. 3. 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 RECOMMENDATIONS: 1. Would continue the patient on nadolol 40 mg daily and titrate heart rate to 55 to 65 beats per minute or maintaining SBP greater than 100 mmHg. 2. Would repeat EGD in 1-2 years unless the patient decompensates or exhibits hematemesis. 3. Would continue the patient on low-sodium diet and judicious weight loss. 4. Would have the patient follow up in the GI Clinic in approximately 6 weeks for further evaluation of his blood pressure while on the increased dose of nadolol. Job ID: [id number]
[2019-07-04] MEDS ORDERED: PROPOFOL 200 MG/20 ML VIAL ONE (10:58)
[2019-07-04] MEDS ORDERED: Lidocaine 1% PF 5 ML VIAL ONE (10:58)
== END 2019-07-04 10:18 | disposition home or self-care (01) ==
LOC: SDC 06:59
PROVIDERS: ATTEND Internal Medicine
PROC: 0DJ08ZZ Inspection of Upper Intestinal Tract, Via Natural or Artificial Opening Endoscopic (ICD-10-PCS; principal; 2019-07-04)
DX: K74.60 Unspecified cirrhosis of liver (principal); I85.10 Secondary esophageal varices without bleeding; K76.0 Fatty (change of) liver, not elsewhere classified; D50.9 Iron deficiency anemia, unspecified; K21.9 Gastro-esophageal reflux disease without esophagitis; Z79.899 Other long term (current) drug therapy; Z85.048 Personal history of other malignant neoplasm of rectum, rectosigmoid junction, and anus; Z86.010 Personal history of colon polyps
CPT/HCPCS: J2001; J2704

== ENCOUNTER 2019-08-08 07:57 | Day surgery (SDC) | payer BC ==
[2019-08-07 11:05] VITALS: BMI 35.5
[2019-08-08 10:43] LABS: #Lymphocytes 0.5 thou/uL (1.20-3.40); #Monocytes 0.3 thou/uL (0.11-0.59); #Neutrophils 1.4 thou/uL (1.40-6.50); %Basophils 0.5 % (0.0-1.0); %Eosinophils 1.8 % (0.0-10.0); %Lymphocytes 23.5 % (21.0-51.0); %Monocytes 11.4 % (0.0-10.0); %Neutrophils 62.8 % (42.0-75.0); Anisocytosis SLIGHT = 6-15 cells (100X) (0-5/hpf); Hemoglobin 8.8 g/dL (14.0-18.0); Large Platelets SLIGHT; MDiff Complete? YES; Mean Corpuscular HGB CONC 30.5 g/dL (32.0-36.0); Mean Corpuscular Hemoglobin 22.4 pg (27.0-31.0); Mean Corpuscular Volume 73.5 fL (78.0-98.0); Microcytosis SLIGHT = 6-15 cells (100X) (0-5/hpf); Platelet Count 62 thou/uL (130-400); Platelet Morphology Comment Appears Decreased; Red Blood Cell (RBC) Count 3.93 mill/uL (4.70-6.10); White Blood Cell (WBC) Count 2.2 thou/uL (4.8-10.8)
[2019-08-08] MEDS ORDERED: PROPOFOL 200 MG/20 ML VIAL ONE (10:44)
--- NOTE | 2019-08-08 11:46 | OP ---
DATE OF PROCEDURE: 08/08/2019 PROCEDURE PERFORMED: Esophagogastroduodenoscopy with control of hemorrhage. INDICATIONS FOR PROCEDURE: Anemia, history of cirrhosis, and gastric antral vascular ectasia. DESCRIPTION OF PROCEDURE: After the risks and benefits of the procedure were explained to the patient including risks of bleeding, infection, perforation, reactions to anesthesia, aspiration, and/or pain, informed consent was obtained. The patient was then taken to the endoscopy suite, where he was placed in the left lateral decubitus position followed by administration of deep sedation via propofol and anesthesia support. Once adequate sedation was achieved, the standard gastroscope was introduced into the mouth with intubation of the esophagus, stomach, and the proximal small intestines with the findings listed below. The patient tolerated the procedure well with no immediate perioperative complications. Upon conclusion of the procedure, all equipment was removed from the patient and he was transferred to Day Stay in satisfactory condition. FINDINGS: Esophagus: Normal-appearing mucosa was seen in the proximal and mid esophagus. Small (grade 1) esophageal varices were seen in the distal esophagus without any high-risk stigmata of bleeding. White appearing mucosa in a radial type pattern was also seen in the distal esophagus consistent with prior band ligation and scar tissue formation. Otherwise, there was no evidence of erosions, ulcerations, mass lesions, or active/recent bleeding. Stomach: Mild mucosal erythema was seen throughout the entire stomach in a mild mosaic type pattern involving the cardia, fundus, body, greater curvature, and incisura. There was no evidence of bleeding from these areas. However, within the gastric antrum, there were multiple petechiae-appearing some mucosal hemorrhage/ectasias, some of which showed active oozing of blood. Given the decreasing hemoglobin and hematocrit recently and active oozing seen here today, argon plasma coagulation was then employed with cauterization of these vascular ectasias. Good hemostasis was achieved with no observed bleeding seen at the end of maneuver. No gastric varices were seen on gastric retroflexion. Otherwise, there was no evidence of erosions, ulcerations, or mass lesions. Duodenum: Normal-appearing mucosa was seen in both the duodenal bulb and second portion of the duodenum. There was no evidence of erosions, ulcerations, mass lesions, or active/recent bleeding. IMPRESSION: 1. 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 2. Small (grade 1) distal esophageal varices without high-risk stigmata of bleeding. No gastric varices were seen during examination either and no band ligation was performed during this evaluation. 3. Mild portal hypertensive gastropathy. RECOMMENDATIONS: 1. Would continue the patient on nonselective beta-blockade with nadolol daily. 2. Would continue to monitor his hemoglobin and hematocrit and transfuse as necessary to maintain the hemoglobin and hematocrit of 7/21. 3. Would continue to monitor clinically for signs of active GI bleeding. 4. Continue pantoprazole 40 mg daily in light of recent GI bleed. 5. Would continue iron supplementation given significant anemia, most likely generating iron-deficiency anemia from chronic blood loss. 6. Follow up in the GI Clinic as scheduled. Job ID: [id number]
== END 2019-08-08 12:25 | disposition home or self-care (01) ==
LOC: SDC 07:57
PROVIDERS: ATTEND Internal Medicine
PROC: 0W3P8ZZ Control Bleeding in Gastrointestinal Tract, Via Natural or Artificial Opening Endoscopic (ICD-10-PCS; principal; 2019-08-08)
DX: K31.819 Angiodysplasia of stomach and duodenum without bleeding (principal); D50.0 Iron deficiency anemia secondary to blood loss (chronic); I85.00 Esophageal varices without bleeding; K63.89 Other specified diseases of intestine; K21.9 Gastro-esophageal reflux disease without esophagitis; Z79.899 Other long term (current) drug therapy
CPT/HCPCS: 36415; 85025; J2704

== ENCOUNTER 2021-03-15 08:04 | Outpatient (CLI) | payer BC | END 2021-03-15 08:05 | disposition home or self-care (01) | LOC: BICULT 08:04 | PROVIDERS: ATTEND Physician Assistant Medical | DX: K74.60 Unspecified cirrhosis of liver (principal); I85.10 Secondary esophageal varices without bleeding; D50.9 Iron deficiency anemia, unspecified; R16.1 Splenomegaly, not elsewhere classified; K80.20 Calculus of gallbladder without cholecystitis without obstruction | CPT/HCPCS: 76705 ==

== ENCOUNTER 2022-09-08 14:04 | Observation (INO) | payer BC ==
[2022-09-08] MEDS ORDERED: ISOVUE-370 76%-LOCM 1 ML ONE (15:05)
[2022-09-08] MEDS ORDERED: Ondansetron PF 4 MG/2 ML Vial ONE (15:14)
[2022-09-08] MEDS ORDERED: FENTANYL 50 MCG/ML 1 ML VIAL ONE ×5 (15:14→18:57)
[2022-09-08 15:46] LABS: ALT (SGPT) 20 U/L (8-55); AST (SGOT) 33 U/L (5-34); Albumin 3.5 g/dL (3.5-5.0); Alkaline Phosphatase 142 U/L (40-110); Anion Gap 12 mmol/L (10-20); BUN (Urea Nitrogen) 14 mg/dL (8.9-20.6); Bilirubin, Total 2.3 mg/dL (0.2-1.2); Calc. Creatinine Clearance 0 mL/min (70-130); Carbon Dioxide 25 mmol/L (22-29); Chloride 103 mmol/L (98-107); Estimated GFR 106; Globulin 3.3 g/dL (2.4-3.5); Glucose 135 mg/dL (70-105); Lipase 16 U/L (8-78); Magnesium 1.9 mg/dL (1.6-2.6); Potassium 4.1 mmol/L (3.5-5.1); Protein, Total 6.8 g/dL (6.0-8.3); Sodium 136 mmol/L (136-145)
[2022-09-08 15:47] LABS: INR-International Normal Ratio 1.2; PTT 29.6 sec (22.9-36.1); Prothrombin Time 15.4 sec (12.0-14.7)
[2022-09-08 16:45] LABS: #Eosinphils 0.1 thou/uL (0.0-0.7); #Lymphocytes 0.4 thou/uL (1.20-3.40); #Monocytes 0.2 thou/uL (0.11-0.59); #Neutrophils 2.4 thou/uL (1.40-6.50); %Eosinophils 2.7 % (0.0-10.0); %Lymphocytes 12.2 % (21.0-51.0); %Neutrophils 80.2 % (42.0-75.0); Hemoglobin 13.4 g/dL (14.0-18.0); Mean Corpuscular HGB CONC 31.9 g/dL (32.0-36.0); Mean Corpuscular Hemoglobin 31.3 pg (27.0-31.0); Mean Corpuscular Volume 97.9 fl (78.0-98.0); Mean Platelet Volume 8.6 fL (7.4-10.4); Platelet Count 103 10x3/uL (130-400); RBC Distribution Width 20.4 % (11.5-14.5); Red Blood Cell (RBC) Count 4.28 mill/uL (4.70-6.10); White Blood Cell (WBC) Count 2.9 10x3/uL (4.8-10.8)
[2022-09-08 16:45] LABS: Bacteria/HPF None Seen HPF (None Seen); Bilirubin Negative (Negative); Blood, Urine Negative (Negative); Calcium Oxalate Crystals 1+ HPF (None Seen); Clarity Clear (Clear); Glucose, Urine (Dipstick) Normal (Negative); Ketone, Urine Negative (Negative); Leukocyte Negative Leu/uL (Negative); Nitrite Negative (Negative); Protein, Urine (Dipstick) 30 mg/dL (Neg-Trace); RBC/HPF 0-3 HPF (0-3); Specific Gravity, Urine 1.027 (1.002-1.036); Squamous Epithelial None Seen HPF (0-3); Urobilinogen Normal mg/dL (Less than 2); WBC/HPF 0-3 HPF (0-3); pH, Urine 5.5 (5.0-9.0)
[2022-09-08] MEDS ORDERED: Acetaminophen 325 MG TAB PO PRN (19:35)
[2022-09-08] MEDS ORDERED: Ondansetron PF 4 MG/2 ML Vial IVP PRN (19:35)
[2022-09-08] MEDS ORDERED: Morphine 2 MG/ML VIAL SLOW IVP PRN (19:36)
[2022-09-08] MEDS ORDERED: Furosemide 40 MG/4 ML VIAL SLOW IVP SCH (20:00)
[2022-09-08] MEDS ORDERED: Piperacillin/Tazobactam 3.375 GM in Sodium Chloride 0.9% 100 ML IVPB SCH (20:00)
[2022-09-08 20:17] VITALS: BMI 33.7
[2022-09-09] MEDS ORDERED: Morphine 2 MG/ML VIAL SLOW IVP PRN (00:42)
[2022-09-09] MEDS ORDERED: traMADol HCl 50 MG TAB PO PRN (00:43)
[2022-09-09] MEDS: Piperacillin/Tazobactam 3.375 GM in Sodium Chloride 0.9% 100 ML IVPB SCH ×2 (00:57→08:38)
[2022-09-09] MEDS ORDERED: Furosemide 20 MG/2 ML VIAL SLOW IVP SCH ×2 (06:00→09:00)
[2022-09-09 06:30] LABS: Hemoglobin 11.4 g/dL (14.0-18.0); Mean Corpuscular HGB CONC 31.4 g/dL (32.0-36.0); Mean Corpuscular Hemoglobin 30.5 pg (27.0-31.0); Mean Corpuscular Volume 97.4 fl (78.0-98.0); RBC Distribution Width 19.8 % (11.5-14.5); Red Blood Cell (RBC) Count 3.72 mill/uL (4.70-6.10); White Blood Cell (WBC) Count 4.5 10x3/uL (4.8-10.8)
[2022-09-09 06:52] LABS: #Basophils 0.1 thou/uL (0.0-0.2); #Lymphocytes 0.2 thou/uL (1.20-3.40); #Monocytes 0.3 thou/uL (0.11-0.59); #Neutrophils 3.9 thou/uL (1.40-6.50); %Basophils 1.9 % (0.0-1.0); %Eosinophils 0.2 % (0.0-10.0); %Lymphocytes 3.4 % (21.0-51.0); %Monocytes 6.9 % (0.0-10.0); %Neutrophils 87.7 % (42.0-75.0); Platelet Count 50 10x3/uL (130-400); Platelet Morphology Comment Appears Decreased
[2022-09-09 06:53] LABS: Anion Gap 17 mmol/L (10-20); BUN (Urea Nitrogen) 15 mg/dL (8.9-20.6); Calc. Creatinine Clearance 143 mL/min (70-130); Calcium 8.5 mg/dL (7.8-10.44); Carbon Dioxide 19 mmol/L (22-29); Chloride 104 mmol/L (98-107); Estimated GFR 107; Glucose 100 mg/dL (70-105); Potassium 3.6 mmol/L (3.5-5.1); Sodium 136 mmol/L (136-145)
[2022-09-09] MEDS ORDERED: Nadolol 40 MG TAB PO SCH (09:00)
[2022-09-09] MEDS ORDERED: Potassium Chloride 20 MEQ TAB PO SCH (09:15)
[2022-09-09 12:02] VITALS: BP 110/74; TEMP 97.7
[2022-09-10] MEDS ORDERED: Cyanocobalamin (Vitamin B-12) 1,000 MCG TAB PO SCH (09:00)
[2022-09-10] MEDS ORDERED: Folic Acid 1 MG TAB PO SCH (09:00)
== END 2022-09-09 13:40 | disposition home or self-care (01) ==
LOC: ERS 14:04 → T4-B 18:28
PROVIDERS: ADMIT Internal Medicine; ATTEND Internal Medicine
DX: K52.9 Noninfective gastroenteritis and colitis, unspecified (principal); K74.60 Unspecified cirrhosis of liver; R18.8 Other ascites; I85.10 Secondary esophageal varices without bleeding; D61.818 Other pancytopenia; K76.6 Portal hypertension; N20.0 Calculus of kidney; Z91.14 Patient's other noncompliance with medication regimen; Z79.899 Other long term (current) drug therapy; Z20.822 Contact with and (suspected) exposure to COVID-19
CPT/HCPCS: 36415; 74177; 80048; 80053; 81003; 81015; 83690; 83735; 85025; 85610; 85730; 93005; 96365; 96374; 96375; 96376; G0378; J1940; J2272; J2405; J2543; J3010; J3490; Q9966; U0003; U0005

== ENCOUNTER 2022-09-12 08:49 | Day surgery (SDC) | payer BC ==
[2022-09-12] MEDS ORDERED: Lidocaine 1% PF 5 ML VIAL ONE (09:05)
[2022-09-12] MEDS ORDERED: Sodium Bicarbonate 2.5 MEQ/5 ML VIAL ONE (09:05)
[2022-09-12 10:10] VITALS: BP 121/90; TEMP 98.5
== END 2022-09-12 09:56 | disposition home or self-care (01) ==
LOC: ULT 08:49
PROVIDERS: ATTEND Physician Assistant Medical
PROC: 0W9G3ZZ Drainage of Peritoneal Cavity, Percutaneous Approach (ICD-10-PCS; principal; 2022-09-12)
DX: K74.60 Unspecified cirrhosis of liver (principal); R18.8 Other ascites; Z79.899 Other long term (current) drug therapy
CPT/HCPCS: 49083

== ENCOUNTER 2022-10-19 18:17 | Inpatient (IN) | payer BC ==
[2022-10-19 19:40] VITALS: BMI 30.9
[2022-10-19] MEDS ORDERED: Ondansetron PF 4 MG/2 ML Vial IVP PRN (21:24)
[2022-10-19] MEDS ORDERED: Ondansetron ODT 4 MG TAB PO PRN (21:24)
[2022-10-19 22:55] LABS: #Lymphocytes 0.6 thou/uL (1.20-3.40); #Monocytes 0.9 thou/uL (0.11-0.59); #Neutrophils 6.8 thou/uL (1.40-6.50); %Eosinophils 0.4 % (0.0-10.0); %Lymphocytes 6.6 % (21.0-51.0); Hemoglobin 9.7 g/dL (14.0-18.0); Mean Corpuscular HGB CONC 31.6 g/dL (32.0-36.0); Mean Corpuscular Hemoglobin 29.9 pg (27.0-31.0); Mean Corpuscular Volume 94.5 fl (78.0-98.0); Mean Platelet Volume 7.1 fL (7.4-10.4); Platelet Count 131 10x3/uL (130-400); RBC Distribution Width 19.3 % (11.5-14.5); Red Blood Cell (RBC) Count 3.26 mill/uL (4.70-6.10); White Blood Cell (WBC) Count 8.3 10x3/uL (4.8-10.8)
[2022-10-19 23:15] LABS: ALT (SGPT) 13 U/L (8-55); AST (SGOT) 15 U/L (5-34); Albumin 2.8 g/dL (3.5-5.0); Alkaline Phosphatase 123 U/L (40-110); Anion Gap 12 mmol/L (10-20); BUN (Urea Nitrogen) 20 mg/dL (8.9-20.6); Bilirubin, Total 3.2 mg/dL (0.2-1.2); Calc. Creatinine Clearance 120 mL/min (70-130); Calcium 8.6 mg/dL (7.8-10.44); Carbon Dioxide 23 mmol/L (22-29); Chloride 102 mmol/L (98-107); Estimated GFR 102; Globulin 3.4 g/dL (2.4-3.5); Glucose 116 mg/dL (70-105); Potassium 4.4 mmol/L (3.5-5.1); Protein, Total 6.2 g/dL (6.0-8.3); Sodium 133 mmol/L (136-145)
[2022-10-20] MEDS ORDERED: Piperacillin/Tazobactam 4.5 GM in Sodium Chloride 0.9% 100 ML IVPB SCH ×2 (00:06→06:00)
[2022-10-20] MEDS ORDERED: Piperacillin/Tazobactam 3.375 GM in Sodium Chloride 0.9% 100 ML IVPB SCH ×2 (00:45→06:00)
[2022-10-20] MEDS: Morphine 2 MG/ML VIAL SLOW IVP PRN ×2 (03:45→14:38)
[2022-10-20 03:50] LABS: Magnesium 1.8 mg/dL (1.6-2.6)
[2022-10-20] MEDS: Pantoprazole 40 MG VIAL IVP SCH ×2 (08:16→20:12)
[2022-10-20] MEDS ORDERED: Furosemide 20 MG/2 ML VIAL SLOW IVP SCH (09:00)
[2022-10-20] MEDS ORDERED: Albumin 25% 25 GM/100 ML BOT IVPB SCH (11:30)
[2022-10-20] MEDS ORDERED: cefTRIAXone\\ROCEPHIN 2 GM in Sodium Chloride 0.9% 100 ML IVPB SCH ×2 (12:00→13:00)
[2022-10-20 15:16] LABS: INR-International Normal Ratio 1.5; Prothrombin Time 18.4 sec (12.0-14.7)
[2022-10-20] MEDS ORDERED: Sodium Bicarbonate 2.5 MEQ/5 ML VIAL ONE (15:38)
[2022-10-20] MEDS ORDERED: Lidocaine 1% PF 5 ML VIAL ONE (15:38)
[2022-10-20] MEDS: Piperacillin/Tazobactam 3.375 GM in Sodium Chloride 0.9% 100 ML IVPB SCH ×2 (15:47→19:08)
[2022-10-20] MEDS: Albumin 25% 25 GM/100 ML BOT IVPB SCH (17:32)
[2022-10-21] MEDS: Acetaminophen 325 MG TAB PO PRN ×2 (00:17→18:21)
[2022-10-21] MEDS: Albumin 25% 25 GM/100 ML BOT IVPB SCH ×4 (00:17→23:58)
[2022-10-21] MEDS ORDERED: Piperacillin/Tazobactam 3.375 GM in Sodium Chloride 0.9% 100 ML IVPB SCH (04:00)
[2022-10-21 07:22] LABS: #Lymphocytes 0.3 thou/uL (1.20-3.40); #Monocytes 0.2 thou/uL (0.11-0.59); #Neutrophils 1.2 thou/uL (1.40-6.50); %Eosinophils 1.4 % (0.0-10.0); %Lymphocytes 17.4 % (21.0-51.0); %Monocytes 11.6 % (0.0-10.0); %Neutrophils 69.7 % (42.0-75.0); Hemoglobin 7.1 g/dL (14.0-18.0); Mean Corpuscular HGB CONC 34.6 g/dL (32.0-36.0); Mean Corpuscular Hemoglobin 32.7 pg (27.0-31.0); Mean Corpuscular Volume 94.8 fl (78.0-98.0); Platelet Count 44 10x3/uL (130-400); RBC Distribution Width 18.9 % (11.5-14.5); Red Blood Cell (RBC) Count 2.17 mill/uL (4.70-6.10); White Blood Cell (WBC) Count 1.7 10x3/uL (4.8-10.8)
[2022-10-21 07:25] LABS: INR-International Normal Ratio 1.5; PTT 43.6 sec (22.9-36.1); Prothrombin Time 18.6 sec (12.0-14.7)
[2022-10-21 07:34] LABS: ALT (SGPT) Less than 7 U/L (8-55); AST (SGOT) 8 U/L (5-34); Albumin 2.7 g/dL (3.5-5.0); Alkaline Phosphatase 68 U/L (40-110); Anion Gap 10 mmol/L (10-20); BUN (Urea Nitrogen) 17 mg/dL (8.9-20.6); Bilirubin, Total 1.8 mg/dL (0.2-1.2); Calc. Creatinine Clearance 153 mL/min (70-130); Calcium 7.9 mg/dL (7.8-10.44); Carbon Dioxide 22 mmol/L (22-29); Chloride 104 mmol/L (98-107); Estimated GFR 112; Globulin 2.3 g/dL (2.4-3.5); Glucose 109 mg/dL (70-105); Potassium 3.4 mmol/L (3.5-5.1); Sodium 133 mmol/L (136-145)
[2022-10-21] MEDS: Pantoprazole 40 MG VIAL IVP SCH ×2 (08:32→20:13)
[2022-10-21] MEDS ORDERED: Furosemide 40 MG TAB PO SCH (09:00)
[2022-10-21] MEDS ORDERED: Furosemide 20 MG TAB PO SCH (09:00)
[2022-10-21] MEDS ORDERED: Spironolactone 100 MG TAB PO SCH (09:00)
[2022-10-21] MEDS: cefTRIAXone\\ROCEPHIN 2 GM in Sodium Chloride 0.9% 100 ML IVPB SCH (11:20)
[2022-10-21] MEDS ORDERED: Potassium Bicarbonate/Cit Ac 20 MEQ TAB PO SCH (12:30)
[2022-10-21 15:05] LABS: Hemoglobin 7.6 g/dL (14.0-18.0); Mean Corpuscular Hemoglobin 33.2 pg (27.0-31.0); Mean Corpuscular Volume 94.9 fl (78.0-98.0); Mean Platelet Volume 7.6 fL (7.4-10.4); Platelet Count 49 10x3/uL (130-400); Red Blood Cell (RBC) Count 2.28 mill/uL (4.70-6.10); White Blood Cell (WBC) Count 1.6 10x3/uL (4.8-10.8)
[2022-10-22] MEDS: Albumin 25% 25 GM/100 ML BOT IVPB SCH ×2 (05:31→12:12)
[2022-10-22 07:49] LABS: Hemoglobin 7.5 g/dL (14.0-18.0); Mean Corpuscular Hemoglobin 31.2 pg (27.0-31.0); Mean Corpuscular Volume 94.5 fl (78.0-98.0); Mean Platelet Volume 7.3 fL (7.4-10.4); Platelet Count 55 10x3/uL (130-400); RBC Distribution Width 18.9 % (11.5-14.5)
[2022-10-22 07:52] LABS: INR-International Normal Ratio 1.3; PTT 40.2 sec (22.9-36.1); Prothrombin Time 16.2 sec (12.0-14.7)
[2022-10-22 08:08] LABS: ALT (SGPT) Less than 7 U/L (8-55); AST (SGOT) 12 U/L (5-34); Albumin 3.7 g/dL (3.5-5.0); Alkaline Phosphatase 73 U/L (40-110); Anion Gap 11 mmol/L (10-20); BUN (Urea Nitrogen) 12 mg/dL (8.9-20.6); Bilirubin, Total 1.4 mg/dL (0.2-1.2); Calc. Creatinine Clearance 152 mL/min (70-130); Calcium 8.5 mg/dL (7.8-10.44); Carbon Dioxide 24 mmol/L (22-29); Chloride 103 mmol/L (98-107); Estimated GFR 113; Globulin 2.4 g/dL (2.4-3.5); Glucose 102 mg/dL (70-105); Potassium 3.5 mmol/L (3.5-5.1); Protein, Total 6.1 g/dL (6.0-8.3); Sodium 134 mmol/L (136-145)
[2022-10-22 08:24] LABS: Band 3 % (5-11); Eosinophils 2 % (0-10); Hypochromia SLIGHT = 6-15 cells (100X) (0-5/hpf); Lymphocytes 12 % (21-51); MDiff Complete? YES; Monocytes 11 % (0-10); Neutrophil 69 % (42-75); Platelet Morphology Comment Appears Decreased; Polychromasia SLIGHT = 2-3 cells (100X) (0-2/hpf); Reactive Lymphocytes 3 % (0-10)
[2022-10-22] MEDS: Pantoprazole 40 MG VIAL IVP SCH (08:32)
[2022-10-22] MEDS: cefTRIAXone\\ROCEPHIN 2 GM in Sodium Chloride 0.9% 100 ML IVPB SCH (11:10)
[2022-10-22 12:13] LABS: Reticulocyte Count 5.3 % (0.5-1.5)
[2022-10-22 12:46] LABS: Thyroid Stimulating Hormone 2.6895 uIU/mL (0.35-4.94)
[2022-10-22 12:47] LABS: Hep C IgG Ab Non-Reactive S/CO (NonReactive); Hep C Index 0.13 S/CO (0-0.79)
[2022-10-22 12:53] LABS: Vitamin B12 Greater than 2000 pg/mL (211-911)
[2022-10-22 16:11] VITALS: BP 118/68; TEMP 98.6
[2022-10-24 05:13] LABS: Hep B Surface AG-Rflx Sendout Negative (Negative); Hepatitis B Core Total Negative (Negative); Hepatitis B Surface AB-Sendout Non Reactive (.)
[2022-10-25 14:16] LABS: CMV DNA-PCR Test Negative (Negative)
[2022-10-25 15:16] LABS: Parvovirus B19 IgG ABS 1.6 index (0.0-0.8); Parvovirus B19 IgM ABS 0.1 index (0.0-0.8)
== END 2022-10-22 17:16 | disposition home or self-care (01) | DRG 432 ==
LOC: T4-A 19:30
PROVIDERS: ADMIT Hospitalist; ATTEND Hospitalist
PROC: 0W9G3ZZ Drainage of Peritoneal Cavity, Percutaneous Approach (ICD-10-PCS; principal; 2022-10-20)
DX: K74.60 Unspecified cirrhosis of liver (principal); K65.2 Spontaneous bacterial peritonitis; D61.818 Other pancytopenia; R18.8 Other ascites; I85.10 Secondary esophageal varices without bleeding; K76.6 Portal hypertension; K76.0 Fatty (change of) liver, not elsewhere classified; K80.20 Calculus of gallbladder without cholecystitis without obstruction; K31.89 Other diseases of stomach and duodenum; Z79.899 Other long term (current) drug therapy
CPT/HCPCS: 36415; 36416; 36430; 49083; 76705; 80053; 82607; 83690; 83735; 84443; 85025; 85046; 85060; 85384; 85610; 85652; 85730; 86140; 86704; 86706; 86747; 86803; 86850; 86900; 86901; 87340; 87497; 87798; 93005; 93010; C9113; J0696; J1940; J2272; J2543; J3490; P9016; P9047

== ENCOUNTER → 2022-11-10 | Day surgery (SDC) | payer BC | END | disposition home or self-care (01) | LOC: ULT 07:53 | PROVIDERS: ATTEND Internal Medicine | DX: K74.60 Unspecified cirrhosis of liver (principal); R18.8 Other ascites; J90 Pleural effusion, not elsewhere classified; K65.2 Spontaneous bacterial peritonitis; D12.8 Benign neoplasm of rectum; I85.10 Secondary esophageal varices without bleeding; D50.9 Iron deficiency anemia, unspecified; K21.9 Gastro-esophageal reflux disease without esophagitis; Z53.8 Procedure and treatment not carried out for other reasons; Z79.2 Long term (current) use of antibiotics; Z79.899 Other long term (current) drug therapy | CPT/HCPCS: 76705 ==

== ENCOUNTER 2023-06-06 00:25 | Inpatient (IN) | payer BC ==
[2023-06-06] MEDS ORDERED: Ondansetron ODT 4 MG TAB PO PRN (02:38)
[2023-06-06 02:56] VITALS: BMI 25.1
[2023-06-06] MEDS ORDERED: Morphine 2 MG/ML VIAL SLOW IVP SCH (04:30)
[2023-06-06] MEDS: cefTRIAXone\\ROCEPHIN 2 GM in Sodium Chloride 0.9% 100 ML IVPB SCH (04:33)
[2023-06-06 05:20] LABS: Hematocrit 34.6 % (42.0-52.0); Hemoglobin 10.7 g/dL (14.0-18.0); Manual Diff?? YES; Mean Corpuscular HGB CONC 30.9 g/dL (32.0-36.0); Mean Corpuscular Hemoglobin 31.4 pg (27.0-31.0); Mean Corpuscular Volume 101.5 fl (78.0-98.0); Mean Platelet Volume 8.5 fL (7.4-10.4); Platelet Count 375 10x3/uL (130-400); RBC Distribution Width 17.7 % (11.5-14.5); Red Blood Cell (RBC) Count 3.41 mill/uL (4.70-6.10); White Blood Cell (WBC) Count 48.6 10x3/uL (4.8-10.8)
[2023-06-06 05:51] LABS: Lactic Acid 1.7 mmol/L (0.5-2.2)
[2023-06-06 05:58] LABS: Albumin 2.2 g/dL (3.5-5.0); Anion Gap 14 mmol/L (10-20); BUN (Urea Nitrogen) 23 mg/dL (8.9-20.6); Bilirubin, Total 4.7 mg/dL (0.2-1.2); Calc. Creatinine Clearance 66 mL/min (70-130); Calcium 8.2 mg/dL (7.8-10.44); Carbon Dioxide 23 mmol/L (22-29); Chloride 100 mmol/L (98-107); Estimated GFR 67; Glucose 123 mg/dL (70-105); Potassium 4.2 mmol/L (3.5-5.1); Protein, Total 5.7 g/dL (6.0-8.3); Sodium 133 mmol/L (136-145)
[2023-06-06 05:59] LABS: ALT (SGPT) 8 U/L (8-55); AST (SGOT) 20 U/L (5-34); Alkaline Phosphatase 148 U/L (40-110); Globulin 3.5 g/dL (2.4-3.5)
[2023-06-06 06:54] LABS: Delete Auto Diff?? YES
[2023-06-06 07:26] LABS: Band 11 % (5-11); CellaVision Operator ID LAB.GE; Lymphocytes 1 % (21-51); Monocytes 2 % (0-10); Neutrophil 85 % (42-75); Platelet Adequacy Comment Platelets Normal; Polychromasia MODERATE = 3-4 cells HPF (0-2); Reactive Lymphocytes 1 % (0-10); Total Cell Count 100
[2023-06-06 07:40] LABS: INR-International Normal Ratio 1.4; Prothrombin Time 17.3 sec (12.0-14.7)
[2023-06-06] MEDS ORDERED: Lidocaine 1% PF 5 ML VIAL ONE (08:55)
[2023-06-06] MEDS ORDERED: Sodium Bicarbonate 2.5 MEQ/5 ML VIAL ONE (08:55)
[2023-06-06] MEDS ORDERED: Furosemide 40 MG TAB PO SCH (09:00)
[2023-06-06] MEDS: Folic Acid 1 MG TAB PO SCH (10:08)
[2023-06-06] MEDS: Cyanocobalamin (Vitamin B-12) 1,000 MCG TAB PO SCH (10:09)
[2023-06-06 10:24] LABS: Fluid, Protein 1.6 g/dL (Not Available)
[2023-06-06] MEDS ORDERED: Spironolactone 100 MG TAB PO SCH (11:00)
[2023-06-06 11:15] LABS: RBC Count-Automated (BF) 201 /cu.mm; WBC/Nucleated-Auto (BF) 2029 /cu.mm
[2023-06-06 11:17] LABS: Body Fluid Source Ascites Body Fluid
[2023-06-06 11:18] LABS: BF Color Yellow; Clarity Hazy (Clear)
[2023-06-06 11:19] LABS: BF Segmented Neutrophils 72 %; Cell Count Non Hematic 24 %; Lymphocytes 4 %
[2023-06-06] MEDS ORDERED: Furosemide 40 MG/4 ML VIAL SLOW IVP SCH (11:45)
[2023-06-06] MEDS: Nadolol 40 MG TAB PO SCH (16:02)
[2023-06-06] MEDS: Morphine 2 MG/ML VIAL SLOW IVP PRN (22:09)
[2023-06-07] MEDS: cefTRIAXone\\ROCEPHIN 2 GM in Sodium Chloride 0.9% 100 ML IVPB SCH (04:48)
[2023-06-07] MEDS: Morphine 2 MG/ML VIAL SLOW IVP PRN ×2 (04:48→22:06)
[2023-06-07 05:08] LABS: #Monocytes 1.4 thou/uL (0.11-0.59); #Neutrophils 20.3 thou/uL (1.40-6.50); %Basophils 0.1 % (0.0-1.0); %Lymphocytes 2.8 % (21.0-51.0); %Monocytes 6.3 % (0.0-10.0); Hematocrit 26.5 % (42.0-52.0); Hemoglobin 8.1 g/dL (14.0-18.0); Mean Corpuscular HGB CONC 30.6 g/dL (32.0-36.0); Mean Corpuscular Hemoglobin 31.8 pg (27.0-31.0); Mean Corpuscular Volume 103.9 fl (78.0-98.0); Mean Platelet Volume 9.3 fL (7.4-10.4); RBC Distribution Width 17.7 % (11.5-14.5); Red Blood Cell (RBC) Count 2.55 mill/uL (4.70-6.10); White Blood Cell (WBC) Count 22.6 10x3/uL (4.8-10.8)
[2023-06-07 05:13] LABS: Platelet Count 172 10x3/uL (130-400)
[2023-06-07 06:31] LABS: Anion Gap 17 mmol/L (10-20); BUN (Urea Nitrogen) 41 mg/dL (8.9-20.6); Calc. Creatinine Clearance 42 mL/min (70-130); Calcium 7.7 mg/dL (7.8-10.44); Carbon Dioxide 19 mmol/L (22-29); Chloride 96 mmol/L (98-107); Estimated GFR 39; Glucose 109 mg/dL (70-105); Magnesium 1.8 mg/dL (1.6-2.6); Potassium 4.9 mmol/L (3.5-5.1); Sodium 127 mmol/L (136-145)
[2023-06-07 07:01] LABS: ALT (SGPT) 8 U/L (8-55); AST (SGOT) 15 U/L (5-34); Albumin 1.9 g/dL (3.5-5.0); Alkaline Phosphatase 116 U/L (40-110); Bilirubin, Direct 1.4 mg/dL (0.1-0.3); Bilirubin, Total 2.3 mg/dL (0.2-1.2); Protein, Total 5.2 g/dL (6.0-8.3)
[2023-06-07] MEDS ORDERED: Furosemide 40 MG TAB PO SCH (09:00)
[2023-06-07] MEDS: Folic Acid 1 MG TAB PO SCH (09:05)
[2023-06-07] MEDS: Nadolol 40 MG TAB PO SCH (09:05)
[2023-06-07] MEDS: Cyanocobalamin (Vitamin B-12) 1,000 MCG TAB PO SCH (09:06)
[2023-06-07] MEDS: Albumin 25% 25 GM/100 ML BOT IVPB SCH ×3 (09:49→22:08)
[2023-06-07] MEDS: Octreotide Acetate 100 MCG/ML VIAL SC SCH ×2 (14:09→22:06)
[2023-06-07] MEDS: Midodrine HCl 5 MG TAB PO SCH ×2 (14:48→22:08)
[2023-06-08] MEDS: cefTRIAXone\\ROCEPHIN 2 GM in Sodium Chloride 0.9% 100 ML IVPB SCH (03:26)
[2023-06-08] MEDS: Albumin 25% 25 GM/100 ML BOT IVPB SCH (03:27)
[2023-06-08 05:41] LABS: Anion Gap 14 mmol/L (10-20); BUN (Urea Nitrogen) 46 mg/dL (8.9-20.6); Calc. Creatinine Clearance 45 mL/min (70-130); Calcium 7.9 mg/dL (7.8-10.44); Carbon Dioxide 21 mmol/L (22-29); Chloride 96 mmol/L (98-107); Estimated GFR 44; Glucose 111 mg/dL (70-105); Potassium 4.4 mmol/L (3.5-5.1); Sodium 127 mmol/L (136-145)
[2023-06-08] MEDS: Octreotide Acetate 100 MCG/ML VIAL SC SCH ×3 (05:45→20:55)
[2023-06-08 06:03] LABS: #Monocytes 0.5 thou/uL (0.11-0.59); #Neutrophils 4.3 thou/uL (1.40-6.50); %Lymphocytes 5.5 % (21.0-51.0); %Monocytes 10.2 % (0.0-10.0); %Neutrophils 83.9 % (42.0-75.0); Hematocrit 19.3 % (42.0-52.0); Mean Corpuscular HGB CONC 31.1 g/dL (32.0-36.0); Mean Corpuscular Hemoglobin 31.9 pg (27.0-31.0); Mean Corpuscular Volume 102.7 fl (78.0-98.0); Mean Platelet Volume 8.7 fL (7.4-10.4); RBC Distribution Width 17.4 % (11.5-14.5); Red Blood Cell (RBC) Count 1.88 mill/uL (4.70-6.10); White Blood Cell (WBC) Count 5.1 10x3/uL (4.8-10.8)
[2023-06-08 06:05] LABS: Platelet Count 82 10x3/uL (130-400)
[2023-06-08 07:50] LABS: #Monocytes 0.5 thou/uL (0.11-0.59); #Neutrophils 4.4 thou/uL (1.40-6.50); %Basophils 0.2 % (0.0-1.0); %Eosinophils 0.2 % (0.0-10.0); %Monocytes 10.4 % (0.0-10.0); %Neutrophils 83.8 % (42.0-75.0); Hematocrit 20.8 % (42.0-52.0); Hemoglobin 6.5 g/dL (14.0-18.0); Mean Corpuscular HGB CONC 31.3 g/dL (32.0-36.0); Mean Corpuscular Hemoglobin 31.7 pg (27.0-31.0); Mean Corpuscular Volume 101.5 fl (78.0-98.0); Mean Platelet Volume 8.7 fL (7.4-10.4); RBC Distribution Width 17.1 % (11.5-14.5); Red Blood Cell (RBC) Count 2.05 mill/uL (4.70-6.10); White Blood Cell (WBC) Count 5.2 10x3/uL (4.8-10.8)
[2023-06-08 07:56] LABS: Platelet Count 87 10x3/uL (130-400)
[2023-06-08] MEDS: Cyanocobalamin (Vitamin B-12) 1,000 MCG TAB PO SCH (10:05)
[2023-06-08] MEDS: Midodrine HCl 5 MG TAB PO SCH ×3 (10:05→20:55)
[2023-06-08] MEDS: Folic Acid 1 MG TAB PO SCH (10:05)
[2023-06-08] MEDS: Morphine 2 MG/ML VIAL SLOW IVP PRN (16:48)
[2023-06-09] MEDS: cefTRIAXone\\ROCEPHIN 2 GM in Sodium Chloride 0.9% 100 ML IVPB SCH (04:12)
[2023-06-09] MEDS: Octreotide Acetate 100 MCG/ML VIAL SC SCH ×3 (07:49→21:40)
[2023-06-09] MEDS: Folic Acid 1 MG TAB PO SCH (10:10)
[2023-06-09] MEDS: Midodrine HCl 5 MG TAB PO SCH ×3 (10:10→21:40)
[2023-06-09] MEDS: Cyanocobalamin (Vitamin B-12) 1,000 MCG TAB PO SCH (10:11)
[2023-06-09 12:20] LABS: #Monocytes 0.3 thou/uL (0.11-0.59); #Neutrophils 2.3 thou/uL (1.40-6.50); %Eosinophils 0.4 % (0.0-10.0); %Lymphocytes 6.4 % (21.0-51.0); %Neutrophils 81.8 % (42.0-75.0); Hematocrit 24.5 % (42.0-52.0); Hemoglobin 7.5 g/dL (14.0-18.0); Mean Corpuscular HGB CONC 30.6 g/dL (32.0-36.0); Mean Corpuscular Hemoglobin 31.3 pg (27.0-31.0); Mean Corpuscular Volume 102.1 fl (78.0-98.0); Mean Platelet Volume 9.5 fL (7.4-10.4); RBC Distribution Width 17.6 % (11.5-14.5); White Blood Cell (WBC) Count 2.8 10x3/uL (4.8-10.8)
[2023-06-09 12:22] LABS: Platelet Count 80 10x3/uL (130-400)
[2023-06-09 12:44] LABS: ALT (SGPT) 7 U/L (8-55); AST (SGOT) 12 U/L (5-34); Albumin 2.8 g/dL (3.5-5.0); Alkaline Phosphatase 89 U/L (40-110); Anion Gap 11 mmol/L (10-20); BUN (Urea Nitrogen) 31 mg/dL (8.9-20.6); Bilirubin, Total 1.5 mg/dL (0.2-1.2); Calc. Creatinine Clearance 73 mL/min (70-130); Calcium 7.8 mg/dL (7.8-10.44); Carbon Dioxide 21 mmol/L (22-29); Chloride 101 mmol/L (98-107); Estimated GFR 79; Glucose 145 mg/dL (70-105); Protein, Total 5.8 g/dL (6.0-8.3); Sodium 129 mmol/L (136-145)
[2023-06-09] MEDS: Morphine 2 MG/ML VIAL SLOW IVP PRN ×2 (14:32→21:52)
[2023-06-10] MEDS: Morphine 2 MG/ML VIAL SLOW IVP PRN ×3 (04:10→22:39)
[2023-06-10] MEDS: cefTRIAXone\\ROCEPHIN 2 GM in Sodium Chloride 0.9% 100 ML IVPB SCH (04:11)
[2023-06-10 05:32] LABS: #Monocytes 0.3 thou/uL (0.11-0.59); #Neutrophils 1.5 thou/uL (1.40-6.50); %Lymphocytes 8.2 % (21.0-51.0); %Monocytes 16.4 % (0.0-10.0); %Neutrophils 73.9 % (42.0-75.0); Hematocrit 22.9 % (42.0-52.0); Mean Corpuscular HGB CONC 30.6 g/dL (32.0-36.0); Mean Corpuscular Volume 101.3 fl (78.0-98.0); Mean Platelet Volume 9.1 fL (7.4-10.4); RBC Distribution Width 17.1 % (11.5-14.5); Red Blood Cell (RBC) Count 2.26 mill/uL (4.70-6.10); White Blood Cell (WBC) Count 2.1 10x3/uL (4.8-10.8)
[2023-06-10 05:38] LABS: Platelet Count 67 10x3/uL (130-400)
[2023-06-10 05:59] LABS: ALT (SGPT) 8 U/L (8-55); AST (SGOT) 12 U/L (5-34); Albumin 2.5 g/dL (3.5-5.0); Alkaline Phosphatase 89 U/L (40-110); Anion Gap 11 mmol/L (10-20); BUN (Urea Nitrogen) 26 mg/dL (8.9-20.6); Bilirubin, Total 1.4 mg/dL (0.2-1.2); Calc. Creatinine Clearance 96 mL/min (70-130); Calcium 7.6 mg/dL (7.8-10.44); Carbon Dioxide 21 mmol/L (22-29); Chloride 102 mmol/L (98-107); Estimated GFR 105; Glucose 112 mg/dL (70-105); Potassium 3.9 mmol/L (3.5-5.1); Protein, Total 5.5 g/dL (6.0-8.3); Sodium 130 mmol/L (136-145)
[2023-06-10] MEDS: Octreotide Acetate 100 MCG/ML VIAL SC SCH (07:15)
[2023-06-10] MEDS ORDERED: PROPOFOL 40 ML ONE (07:42)
[2023-06-10] MEDS ORDERED: Lidocaine 1% PF 5 ML VIAL ONE ×2 (07:42→08:21)
[2023-06-10] MEDS ORDERED: fentaNYL 50 mcg/mL 1 mL Vial ONE (07:44)
[2023-06-10] MEDS ORDERED: PROPOFOL 200 MG/20 ML VIAL ONE (08:21)
[2023-06-10] MEDS ORDERED: PHENYLEPHRINE-NS 100 MCG/ML 10 ML SYRINGE ONE (08:35)
[2023-06-10] MEDS ORDERED: Ondansetron HCl/PF 4 MG/2 ML Vial IVP PRN (08:39)
[2023-06-10] MEDS ORDERED: Promethazine HCl 25 MG/ML VIAL IM PRN (08:39)
[2023-06-10] MEDS ORDERED: Ondansetron PF 4 MG/2 ML Vial ONE (09:15)
[2023-06-10] MEDS ORDERED: Furosemide 20 MG TAB PO SCH (09:18)
[2023-06-10] MEDS: Folic Acid 1 MG TAB PO SCH (11:24)
[2023-06-10] MEDS: Cyanocobalamin (Vitamin B-12) 1,000 MCG TAB PO SCH (11:24)
[2023-06-10] MEDS: Midodrine HCl 5 MG TAB PO SCH (11:32)
[2023-06-10 17:40] LABS: Hematocrit 27.3 % (42.0-52.0); Hemoglobin 8.6 g/dL (14.0-18.0)
[2023-06-11] MEDS: Morphine 2 MG/ML VIAL SLOW IVP PRN (04:59)
[2023-06-11 06:23] LABS: #Monocytes 0.3 thou/uL (0.11-0.59); #Neutrophils 1.8 thou/uL (1.40-6.50); %Basophils 0.4 % (0.0-1.0); %Eosinophils 0.8 % (0.0-10.0); %Lymphocytes 7.6 % (21.0-51.0); %Monocytes 13.1 % (0.0-10.0); %Neutrophils 77.3 % (42.0-75.0); Hematocrit 24.2 % (42.0-52.0); Hemoglobin 7.8 g/dL (14.0-18.0); Mean Corpuscular HGB CONC 32.2 g/dL (32.0-36.0); Mean Corpuscular Hemoglobin 31.6 pg (27.0-31.0); Mean Platelet Volume 8.8 fL (7.4-10.4); Red Blood Cell (RBC) Count 2.47 mill/uL (4.70-6.10); White Blood Cell (WBC) Count 2.4 10x3/uL (4.8-10.8)
[2023-06-11 06:34] LABS: INR-International Normal Ratio 1.4
[2023-06-11 06:37] LABS: Platelet Count 62 10x3/uL (130-400)
[2023-06-11 06:42] LABS: ALT (SGPT) 8 U/L (8-55); AST (SGOT) 14 U/L (5-34); Albumin 2.7 g/dL (3.5-5.0); Alkaline Phosphatase 119 U/L (40-110); Anion Gap 10 mmol/L (10-20); BUN (Urea Nitrogen) 25 mg/dL (8.9-20.6); Bilirubin, Total 3.1 mg/dL (0.2-1.2); Calc. Creatinine Clearance 101 mL/min (70-130); Calcium 7.9 mg/dL (7.8-10.44); Carbon Dioxide 22 mmol/L (22-29); Chloride 103 mmol/L (98-107); Estimated GFR 107; Globulin 3.1 g/dL (2.4-3.5); Glucose 109 mg/dL (70-105); Potassium 3.8 mmol/L (3.5-5.1); Protein, Total 5.8 g/dL (6.0-8.3); Sodium 131 mmol/L (136-145)
[2023-06-11] MEDS ORDERED: Spironolactone 25 MG TAB PO SCH (08:00)
[2023-06-11 08:27] VITALS: BP 110/74; TEMP 97.8
[2023-06-11] MEDS ORDERED: Furosemide 20 MG TAB PO SCH (09:00)
[2023-06-11] MEDS: Cyanocobalamin (Vitamin B-12) 1,000 MCG TAB PO SCH (11:12)
[2023-06-11] MEDS: Folic Acid 1 MG TAB PO SCH (11:13)
== END 2023-06-11 12:05 | disposition home or self-care (01) | DRG 372 ==
LOC: 2SW 02:08 → OBSVTOIN 11:46 → 2SW 06-08 13:26
PROVIDERS: ADMIT Student in an Organized Health Care Education/Training Program; ATTEND Family Medicine
PROC: 0W9G3ZZ Drainage of Peritoneal Cavity, Percutaneous Approach (ICD-10-PCS; principal; 2023-06-06)
PROC: 0DB98ZX Excision of Duodenum, Via Natural or Artificial Opening Endoscopic, Diagnostic (ICD-10-PCS; 2023-06-06)
PROC: 30233J1 Transfusion of Nonautologous Serum Albumin into Peripheral Vein, Percutaneous Approach (ICD-10-PCS; 2023-06-07)
PROC: 30233N1 Transfusion of Nonautologous Red Blood Cells into Peripheral Vein, Percutaneous Approach (ICD-10-PCS; 2023-06-08)
DX: K65.2 Spontaneous bacterial peritonitis (principal); D61.818 Other pancytopenia; E87.1 Hypo-osmolality and hyponatremia; K76.6 Portal hypertension; N17.9 Acute kidney failure, unspecified; R18.8 Other ascites; E87.20 Acidosis, unspecified; I85.00 Esophageal varices without bleeding; K74.60 Unspecified cirrhosis of liver; B96.89 Other specified bacterial agents as the cause of diseases classified elsewhere; K75.81 Nonalcoholic steatohepatitis (NASH); D72.829 Elevated white blood cell count, unspecified; K21.9 Gastro-esophageal reflux disease without esophagitis; K31.89 Other diseases of stomach and duodenum; D50.9 Iron deficiency anemia, unspecified; I12.9 Hypertensive chronic kidney disease with stage 1 through stage 4 chronic kidney disease, or unspecified chronic kidney disease; N18.30 Chronic kidney disease, stage 3 unspecified; E83.51 Hypocalcemia; E88.09 Other disorders of plasma-protein metabolism, not elsewhere classified; D63.1 Anemia in chronic kidney disease; K72.10 Chronic hepatic failure without coma; K31.819 Angiodysplasia of stomach and duodenum without bleeding; K31.7 Polyp of stomach and duodenum; Z90.49 Acquired absence of other specified parts of digestive tract; Z98.890 Other specified postprocedural states; Z82.49 Family history of ischemic heart disease and other diseases of the circulatory system; Z79.899 Other long term (current) drug therapy
CPT/HCPCS: 36415; 36416; 36430; 49083; 80048; 80053; 80076; 82248; 82728; 83540; 83550; 83605; 83615; 83735; 84100; 84157; 84443; 84550; 85025; 85060; 85610; 85730; 86850; 86900; 86901; 87070; 87205; 88305; 89051; 96374; 96375; G0378; J0696; J1940; J2272; J2354; J2405; J2704; J3010; J3490; P9016; P9047; Q0162

== ENCOUNTER 2023-11-07 10:53 | Day surgery (SDC) | payer BC | END 2023-11-07 12:25 | disposition home or self-care (01) | LOC: ULT 10:53 | PROVIDERS: ATTEND Physician Assistant Medical | PROC: 0W9G30Z Drainage of Peritoneal Cavity with Drainage Device, Percutaneous Approach (ICD-10-PCS; principal; 2023-11-07) | DX: K74.60 Unspecified cirrhosis of liver (principal); R18.8 Other ascites | CPT/HCPCS: 49083; 85025; 85610; 85730 ==

== ENCOUNTER 2023-11-29 10:29 | Outpatient (CLI) | payer BC | END 2023-11-29 10:30 | disposition home or self-care (01) | LOC: BICRAD 10:29 | PROVIDERS: ATTEND Nurse Practitioner Family | DX: M47.24 Other spondylosis with radiculopathy, thoracic region (principal); M54.50 Low back pain, unspecified; M47.816 Spondylosis without myelopathy or radiculopathy, lumbar region | CPT/HCPCS: 72070; 72120 ==

== ENCOUNTER 2023-12-07 08:15 | Emergency (ER) | payer BC ==
[2023-12-07 08:55] LABS: #Basophils Less than 0.03 10x3/uL (0.0-0.2); %Basophils 0.5 % (0.0-1.0); %Eosinophils 1.4 % (0.0-10.0); %Lymphocytes 11.9 % (21.0-51.0); %Monocytes 7.8 % (0.0-10.0); %Neutrophils 77.9 % (42.0-75.0); Hemoglobin 8.7 g/dL (14.0-18.0); Mean Corpuscular HGB CONC 32.2 g/dL (32.0-36.0); Mean Corpuscular Hemoglobin 35.8 pg (27.0-31.0); Mean Corpuscular Volume 111.1 fL (78.0-98.0); Mean Platelet Volume 8.9 fL (7.4-10.4); Platelet Count 90 10x3/uL (130-400); Red Blood Cell (RBC) Count 2.43 mill/uL (4.70-6.10)
[2023-12-07 09:12] LABS: ALT (SGPT) 16 U/L (8-55); AST (SGOT) 22 U/L (5-34); Albumin 2.6 g/dL (3.5-5.0); Alkaline Phosphatase 162 U/L (40-110); Anion Gap 14 mmol/L (10-20); BUN (Urea Nitrogen) 20 mg/dL (8.9-20.6); Bilirubin, Total 1.7 mg/dL (0.2-1.2); CK (CPK) 54 U/L (30-200); Calc. Creatinine Clearance 0 mL/min (70-130); Calcium 8.4 mg/dL (7.8-10.44); Carbon Dioxide 18 mmol/L (22-29); Chloride 111 mmol/L (98-107); Estimated GFR 103; Globulin 3.5 g/dL (2.4-3.5); Glucose 122 mg/dL (70-105); Lipase 34 U/L (8-78); Magnesium 1.8 mg/dL (1.6-2.6); Potassium 3.6 mmol/L (3.5-5.1); Protein, Total 6.1 g/dL (6.0-8.3); Sodium 139 mmol/L (136-145)
[2023-12-07 09:17] LABS: Troponin I Less than 0.010 ng/mL (< 0.028)
[2023-12-07 10:47] LABS: Bacteria/HPF None Seen HPF (None Seen); Bilirubin Negative (Negative); Blood, Urine 1+ (Negative); CAUTI Indications for Culture Dysuria,urgency,freq; Clarity Clear (Clear); Glucose, Urine (Dipstick) Normal (Negative); Ketone, Urine 10 mg/dL (Negative); Leukocyte Negative Leu/uL (Negative); Nitrite Negative (Negative); Protein, Urine (Dipstick) 30 mg/dL (Neg-Trace); Specific Gravity, Urine 1.035 (1.002-1.036); Squamous Epithelial 0-3 HPF (0-3); Urobilinogen Normal mg/dL (Less than 2); WBC/HPF 0-3 HPF (0-3)
[2023-12-07 10:49] LABS: Urine Culture Reflex No No
== END 2023-12-07 13:18 | disposition home or self-care (01) ==
LOC: ERS 08:15
DX: K74.60 Unspecified cirrhosis of liver (principal); G93.40 Encephalopathy, unspecified
CPT/HCPCS: 36415; 70450; 71045; 80053; 81001; 82140; 82550; 83690; 83735; 84443; 84484; 85025; 93005

== ENCOUNTER 2024-01-08 09:10 | Day surgery (SDC) | payer BC ==
[2024-01-08] MEDS ORDERED: diphenhydrAMINE 25 MG CAP PO SCH (09:30)
[2024-01-08] MEDS ORDERED: Acetaminophen 500 MG TAB ONE (09:34)
[2024-01-08] MEDS: Acetaminophen 500 MG TAB PO SCH (09:36)
[2024-01-08 12:48] VITALS: BP 112/73; TEMP 98.1
== END 2024-01-08 12:49 | disposition home or self-care (01) ==
LOC: ONC/OP 09:10
PROVIDERS: ATTEND Internal Medicine Hematology & Oncology
DX: D64.9 Anemia, unspecified (principal); D69.6 Thrombocytopenia, unspecified
CPT/HCPCS: 36430; 86850; 86900; 86901; P9016

== ENCOUNTER 2024-01-20 07:53 | Inpatient (IN) | payer BC ==
[2024-01-20 09:09] LABS: Bacteria/HPF None Seen HPF (None Seen); Bilirubin Negative (Negative); Blood, Urine Negative (Negative); CAUTI Indications for Culture Dysuria,urgency,freq; Clarity Clear (Clear); Glucose, Urine (Dipstick) Normal (Negative); Ketone, Urine Negative (Negative); Leukocyte Negative Leu/uL (Negative); Nitrite Negative (Negative); Protein, Urine (Dipstick) 20 mg/dL (Neg-Trace); RBC/HPF 0-3 HPF (0-3); Specific Gravity, Urine 1.023 (1.002-1.036); Squamous Epithelial 0-3 HPF (0-3); WBC/HPF 0-3 HPF (0-3)
[2024-01-20 09:16] LABS: Urine Culture Reflex No No
[2024-01-20 09:21] LABS: #Basophils Less than 0.03 10x3/uL (0.0-0.2); #Eosinphils Less than 0.03 10x3/uL (0.0-0.7); %Basophils 0.2 % (0.0-1.0); %Eosinophils 0.2 % (0.0-10.0); %Lymphocytes 6.9 % (21.0-51.0); %Neutrophils 85.7 % (42.0-75.0); Hematocrit 26.6 % (42.0-52.0); Hemoglobin 8.5 g/dL (14.0-18.0); Mean Corpuscular Hemoglobin 32.7 pg (27.0-31.0); Mean Corpuscular Volume 102.3 fL (78.0-98.0); Mean Platelet Volume 8.6 fL (7.4-10.4); Platelet Count 132 10x3/uL (130-400); RBC Distribution Width 19.1 % (11.5-14.5)
[2024-01-20 09:23] LABS: ALT (SGPT) 21 U/L (8-55); AST (SGOT) 26 U/L (5-34); Alkaline Phosphatase 144 U/L (40-110); Anion Gap 13 mmol/L (10-20); BUN (Urea Nitrogen) 23 mg/dL (8.9-20.6); Bilirubin, Total 1.5 mg/dL (0.2-1.2); CK (CPK) 77 U/L (30-200); Calc. Creatinine Clearance 0 mL/min (70-130); Carbon Dioxide 18 mmol/L (22-29); Chloride 109 mmol/L (98-107); Estimated GFR 101; Globulin 4.1 g/dL (2.4-3.5); Glucose 127 mg/dL (70-105); Lipase 28 U/L (8-78); Potassium 4.3 mmol/L (3.5-5.1); Protein, Total 6.1 g/dL (6.0-8.3); Sodium 136 mmol/L (136-145)
[2024-01-20 09:27] LABS: Troponin I Less than 0.010 ng/mL (< 0.028)
[2024-01-20 09:46] LABS: Anisocytosis SLIGHT = 6-15 cells HPF (0-5); Macrocytosis MODERATE=16-30 cells HPF (0-5); Platelet Adequacy Comment Platelets Normal; Polychromasia SLIGHT = 2-3 cells HPF (0-2)
[2024-01-20] MEDS ORDERED: Meclizine HCl 25 MG TAB ONE (09:56)
[2024-01-20] MEDS ORDERED: Lorazepam 2 MG/ML VIAL ONE (10:31)
[2024-01-20 10:39] LABS: INR-International Normal Ratio 1.2; PTT 38.3 sec (22.9-36.1); Prothrombin Time 15.3 sec (12.0-14.7)
[2024-01-20 11:09] LABS: Influenza A by NAA Not Detected (NotDetected); Influenza B by NAA Not Detected (NotDetected); SARS-CoV-2 NAA Rapid Test Not Detected (NotDetected)
[2024-01-20] MEDS ORDERED: Iopamidol-370 76% 500 ML MDV (1 ML CHARGE) ONE (11:45)
[2024-01-20] MEDS ORDERED: Aspirin 325 MG TAB ONE (12:50)
[2024-01-20] MEDS ORDERED: Acetaminophen 325 MG TAB PO PRN (13:12)
[2024-01-20] MEDS ORDERED: hydrALAZINE 20 MG/ML VIAL SLOW IVP PRN (13:12)
[2024-01-20] MEDS ORDERED: LORazepam 2 MG/ML SYR.(CARPUJECT) ONE (14:35)
[2024-01-20] MEDS: Lorazepam 2 MG/ML VIAL SLOW IVP SCH (14:43)
[2024-01-20 18:31] VITALS: BMI 25.1
[2024-01-20] MEDS: Lactulose 20 GM (30 mL) UDCUP PO SCH (21:30)
[2024-01-20] MEDS: Ondansetron ODT 4 MG TAB PO PRN (21:34)
[2024-01-20] MEDS: traMADol HCl 50 MG TAB PO PRN (21:48)
[2024-01-20] MEDS: Metoprolol Tartrate 25 MG TAB PO SCH (23:39)
[2024-01-20] MEDS: Melatonin 3 MG TAB PO PRN (23:40)
[2024-01-21 00:52] LABS: Amphetamine Not Detected (NotDetected); Barbiturates Screen Not Detected (NotDetected); Benzodiazepine Screen Detected (NotDetected); Cocaine Metabolite Screen Not Detected (NotDetected); Methadone Not Detected (NotDetected); Methamphetamine Not Detected (NotDetected); Opiate Screen Not Detected (NotDetected); Oxycodone Screen Not Detected (NotDetected); Phencyclidine (PCP) Not Detected (NotDetected); THC/Cannabinoid Screen Not Detected (NotDetected); Tricyclic Screen Not Detected (NotDetected)
[2024-01-21 04:33] LABS: #Basophils Less than 0.03 10x3/uL (0.0-0.2); #Eosinphils Less than 0.03 10x3/uL (0.0-0.7); %Eosinophils 0.3 % (0.0-10.0); %Lymphocytes 4.3 % (21.0-51.0); %Monocytes 5.1 % (0.0-10.0); %Neutrophils 89.7 % (42.0-75.0); Hematocrit 24.4 % (42.0-52.0); Hemoglobin 7.4 g/dL (14.0-18.0); Mean Corpuscular HGB CONC 30.3 g/dL (32.0-36.0); Mean Corpuscular Hemoglobin 31.5 pg (27.0-31.0); Mean Corpuscular Volume 103.8 fL (78.0-98.0); Mean Platelet Volume 8.8 fL (7.4-10.4); Platelet Count 93 10x3/uL (130-400); RBC Distribution Width 19.3 % (11.5-14.5); Red Blood Cell (RBC) Count 2.35 mill/uL (4.70-6.10)
[2024-01-21 04:47] LABS: ALT (SGPT) 20 U/L (8-55); AST (SGOT) 23 U/L (5-34); Albumin 1.9 g/dL (3.5-5.0); Alkaline Phosphatase 139 U/L (40-110); Anion Gap 12 mmol/L (10-20); BUN (Urea Nitrogen) 22 mg/dL (8.9-20.6); Bilirubin, Total 1.5 mg/dL (0.2-1.2); Calc. Creatinine Clearance 87 mL/min (70-130); Calcium 7.8 mg/dL (7.8-10.44); Carbon Dioxide 16 mmol/L (22-29); Cardiac Risk 4.3 (Less than 4.5); Chloride 111 mmol/L (98-107); Cholesterol 113 mg/dl (< 200 Desired); Estimated GFR 93; Globulin 3.7 g/dL (2.4-3.5); Glucose 101 mg/dL (70-105); HDL Cholesterol 26 mg/dL (>60 Neg Risk); LDL Cholesterol, Calculated 73 mg/dL; Magnesium 1.8 mg/dL (1.6-2.6); Protein, Total 5.6 g/dL (6.0-8.3); Sodium 135 mmol/L (136-145); Triglycerides 70 mg/dL (Less than 150)
[2024-01-21] MEDS: Aspirin 81 mg Enteric Coated Tablet PO SCH (07:59)
[2024-01-21] MEDS: Pantoprazole DR 40 MG TAB PO SCH (08:00)
[2024-01-21] MEDS: Spironolactone 25 MG TAB PO SCH (08:00)
[2024-01-21] MEDS: Furosemide 40 MG TAB PO SCH (08:00)
[2024-01-21] MEDS: Lactated Ringer's 1,000 ML IV SCH (15:52)
[2024-01-22 04:33] LABS: #Basophils Less than 0.03 10x3/uL (0.0-0.2); %Eosinophils 1.1 % (0.0-10.0); %Lymphocytes 9.9 % (21.0-51.0); %Monocytes 9.9 % (0.0-10.0); %Neutrophils 78.4 % (42.0-75.0); Hematocrit 19.1 % (42.0-52.0); Hemoglobin 5.9 g/dL (14.0-18.0); Mean Corpuscular HGB CONC 30.9 g/dL (32.0-36.0); Mean Corpuscular Hemoglobin 32.6 pg (27.0-31.0); Mean Corpuscular Volume 105.5 fL (78.0-98.0); Mean Platelet Volume 9.3 fL (7.4-10.4); Platelet Count 59 10x3/uL (130-400); RBC Distribution Width 19.4 % (11.5-14.5); Red Blood Cell (RBC) Count 1.81 mill/uL (4.70-6.10)
[2024-01-22 04:53] LABS: Anion Gap 9 mmol/L (10-20); BUN (Urea Nitrogen) 20 mg/dL (8.9-20.6); Calc. Creatinine Clearance 86 mL/min (70-130); Calcium 7.3 mg/dL (7.8-10.44); Carbon Dioxide 18 mmol/L (22-29); Chloride 111 mmol/L (98-107); Estimated GFR 92; Glucose 118 mg/dL (70-105); Potassium 3.7 mmol/L (3.5-5.1); Sodium 134 mmol/L (136-145)
[2024-01-22 14:23] LABS: Hematocrit 25.8 % (42.0-52.0); Hemoglobin 8.2 g/dL (14.0-18.0)
[2024-01-22 17:35] VITALS: BP 99/64; TEMP 98.1
== END 2024-01-22 17:31 | disposition home or self-care (01) | DRG 433 ==
LOC: ERS 07:53 → ERHOLD 13:33 → 2SW 18:02 → OBSVTOIN 01-21 16:12
PROVIDERS: ADMIT Internal Medicine; ATTEND Internal Medicine
PROC: 30233N1 Transfusion of Nonautologous Red Blood Cells into Peripheral Vein, Percutaneous Approach (ICD-10-PCS; principal; 2024-01-22)
DX: K74.60 Unspecified cirrhosis of liver (principal); I85.00 Esophageal varices without bleeding; R18.8 Other ascites; Z94.4 Liver transplant status; I95.1 Orthostatic hypotension; D64.9 Anemia, unspecified; K76.0 Fatty (change of) liver, not elsewhere classified; W19.XXXA Unspecified fall, initial encounter; F40.240 Claustrophobia; Z79.2 Long term (current) use of antibiotics; Z79.899 Other long term (current) drug therapy; Z90.49 Acquired absence of other specified parts of digestive tract; Z98.890 Other specified postprocedural states
CPT/HCPCS: 36415; 36416; 36430; 70450; 70496; 70498; 70551; 71045; 80048; 80053; 80061; 80306; 81001; 82140; 82550; 83605; 83690; 83735; 84443; 84484; 85025; 85610; 85730; 86850; 86900; 86901; 93005; 93010; 96374; 96376; G0378; J2060; J7120; P9016; Q0162; Q9967

== ENCOUNTER 2024-01-24 10:40 | Emergency (ER) | payer BC ==
[2024-01-24 11:59] LABS: #Basophils Less than 0.03 10x3/uL (0.0-0.2); #Eosinphils Less than 0.03 10x3/uL (0.0-0.7); %Basophils 0.2 % (0.0-1.0); %Eosinophils 0.5 % (0.0-10.0); %Lymphocytes 7.5 % (21.0-51.0); %Monocytes 7.3 % (0.0-10.0); %Neutrophils 83.8 % (42.0-75.0); Hematocrit 31.4 % (42.0-52.0); Hemoglobin 10.2 g/dL (14.0-18.0); Mean Corpuscular HGB CONC 32.5 g/dL (32.0-36.0); Mean Corpuscular Hemoglobin 32.5 pg (27.0-31.0); Mean Platelet Volume 9.5 fL (7.4-10.4); Platelet Count 97 10x3/uL (130-400); RBC Distribution Width 20.1 % (11.5-14.5); Red Blood Cell (RBC) Count 3.14 mill/uL (4.70-6.10)
[2024-01-24] MEDS ORDERED: Lactulose 20 GM (30 mL) UDCUP ONE (12:00)
[2024-01-24 12:14] LABS: INR-International Normal Ratio 1.2; Prothrombin Time 15.5 sec (12.0-14.7)
[2024-01-24 12:17] LABS: ALT (SGPT) 20 U/L (8-55); AST (SGOT) 22 U/L (5-34); Albumin 2.2 g/dL (3.5-5.0); Alkaline Phosphatase 151 U/L (40-110); Anion Gap 10 mmol/L (10-20); BUN (Urea Nitrogen) 19 mg/dL (8.9-20.6); Bilirubin, Total 2.6 mg/dL (0.2-1.2); Calc. Creatinine Clearance 0 mL/min (70-130); Carbon Dioxide 18 mmol/L (22-29); Chloride 110 mmol/L (98-107); Estimated GFR 108; Globulin 3.9 g/dL (2.4-3.5); Glucose 102 mg/dL (70-105); Lipase 28 U/L (8-78); Potassium 3.7 mmol/L (3.5-5.1); Protein, Total 6.1 g/dL (6.0-8.3); Sodium 134 mmol/L (136-145); Troponin I Less than 0.010 ng/mL (< 0.028)
[2024-01-24 12:54] LABS: ALT (SGPT) 22 U/L (8-55); AST (SGOT) 27 U/L (5-34); Albumin 2.3 g/dL (3.5-5.0); Alkaline Phosphatase 152 U/L (40-110); Anion Gap 13 mmol/L (10-20); BUN (Urea Nitrogen) 19 mg/dL (8.9-20.6); Bilirubin, Total 2.5 mg/dL (0.2-1.2); Calc. Creatinine Clearance 0 mL/min (70-130); Calcium 7.8 mg/dL (7.8-10.44); Carbon Dioxide 16 mmol/L (22-29); Chloride 109 mmol/L (98-107); Estimated GFR 110; Globulin 4.1 g/dL (2.4-3.5); Glucose 107 mg/dL (70-105); Lipase 32 U/L (8-78); Protein, Total 6.4 g/dL (6.0-8.3); Sodium 134 mmol/L (136-145)
== END 2024-01-24 13:07 | disposition home or self-care (01) ==
LOC: ERS 10:40
DX: K76.82 Hepatic encephalopathy (principal); K74.60 Unspecified cirrhosis of liver; D61.818 Other pancytopenia
CPT/HCPCS: 36415; 70450; 71045; 80053; 82140; 83605; 83690; 83880; 84484; 85025; 85610; 85730; 87040; 93005

== ENCOUNTER 2024-03-20 09:32 | Inpatient (IN) | payer BC ==
[2024-03-20 10:06] LABS: #Basophils Less than 0.03 10x3/uL (0.0-0.2); #Eosinphils Less than 0.03 10x3/uL (0.0-0.7); %Basophils 0.2 % (0.0-1.0); %Eosinophils 0.3 % (0.0-10.0); %Lymphocytes 8.5 % (21.0-51.0); %Monocytes 5.7 % (0.0-10.0); %Neutrophils 84.6 % (42.0-75.0); Hematocrit 31.8 % (42.0-52.0); Hemoglobin 10.4 g/dL (14.0-18.0); Mean Corpuscular HGB CONC 32.7 g/dL (32.0-36.0); Mean Corpuscular Hemoglobin 35.3 pg (27.0-31.0); Mean Corpuscular Volume 107.8 fL (78.0-98.0); Mean Platelet Volume 8.6 fL (7.4-10.4); Platelet Count 111 10x3/uL (130-400); RBC Distribution Width 17.6 % (11.5-14.5); Red Blood Cell (RBC) Count 2.95 mill/uL (4.70-6.10)
[2024-03-20 10:19] LABS: ALT (SGPT) 21 U/L (8-55); AST (SGOT) 24 U/L (5-34); Albumin 2.4 g/dL (3.5-5.0); Alkaline Phosphatase 176 U/L (40-110); Anion Gap 12 mmol/L (10-20); BUN (Urea Nitrogen) 23 mg/dL (8.9-20.6); Bilirubin, Total 1.7 mg/dL (0.2-1.2); Calc. Creatinine Clearance 0 mL/min (70-130); Calcium 8.1 mg/dL (7.8-10.44); Carbon Dioxide 20 mmol/L (22-29); Chloride 108 mmol/L (98-107); Estimated GFR 93; Glucose 136 mg/dL (70-105); Lipase 26 U/L (8-78); Magnesium 1.8 mg/dL (1.6-2.6); Potassium 3.7 mmol/L (3.5-5.1); Protein, Total 6.4 g/dL (6.0-8.3); Sodium 136 mmol/L (136-145)
[2024-03-20 10:29] LABS: INR-International Normal Ratio 1.1; Prothrombin Time 14.4 sec (12.0-14.7); Troponin I Less than 0.010 ng/mL (< 0.028)
[2024-03-20 10:52] LABS: Bacteria/HPF None Seen HPF (None Seen); Bilirubin Negative (Negative); Blood, Urine Negative (Negative); CAUTI Indications for Culture Dysuria,urgency,freq; Clarity Clear (Clear); Glucose, Urine (Dipstick) Normal (Negative); Ketone, Urine Trace mg/dL (Negative); Leukocyte Negative Leu/uL (Negative); Nitrite Negative (Negative); Protein, Urine (Dipstick) 10 mg/dL (Neg-Trace); RBC/HPF 0-3 HPF (0-3); Specific Gravity, Urine 1.027 (1.002-1.036); Squamous Epithelial 0-3 HPF (0-3); WBC/HPF 0-3 HPF (0-3); pH, Urine 5.5 (5.0-9.0)
[2024-03-20 10:55] LABS: Urine Culture Reflex No No
[2024-03-20] MEDS ORDERED: Lactulose 20 GM (30 mL) UDCUP ONE ×2 (11:18→11:22)
[2024-03-20 12:46] LABS: #Basophils Less than 0.03 10x3/uL (0.0-0.2); #Eosinphils Less than 0.03 10x3/uL (0.0-0.7); %Basophils 0.2 % (0.0-1.0); %Eosinophils 0.2 % (0.0-10.0); %Lymphocytes 7.6 % (21.0-51.0); %Monocytes 8.6 % (0.0-10.0); %Neutrophils 82.9 % (42.0-75.0); Hematocrit 32.4 % (42.0-52.0); Hemoglobin 10.2 g/dL (14.0-18.0); Mean Corpuscular HGB CONC 31.5 g/dL (32.0-36.0); Mean Corpuscular Hemoglobin 35.4 pg (27.0-31.0); Mean Corpuscular Volume 112.5 fL (78.0-98.0); Mean Platelet Volume 9.1 fL (7.4-10.4); Platelet Count 102 10x3/uL (130-400); RBC Distribution Width 17.8 % (11.5-14.5); Red Blood Cell (RBC) Count 2.88 mill/uL (4.70-6.10)
[2024-03-20 13:02] LABS: ALT (SGPT) 22 U/L (8-55); AST (SGOT) 27 U/L (5-34); Albumin 2.4 g/dL (3.5-5.0); Alkaline Phosphatase 172 U/L (40-110); Anion Gap 12 mmol/L (10-20); BUN (Urea Nitrogen) 23 mg/dL (8.9-20.6); Bilirubin, Total 1.8 mg/dL (0.2-1.2); Calc. Creatinine Clearance 0 mL/min (70-130); Calcium 8.2 mg/dL (7.8-10.44); Carbon Dioxide 19 mmol/L (22-29); Chloride 108 mmol/L (98-107); Estimated GFR 93; Glucose 122 mg/dL (70-105); Potassium 3.5 mmol/L (3.5-5.1); Protein, Total 6.4 g/dL (6.0-8.3); Sodium 135 mmol/L (136-145)
[2024-03-20 13:04] LABS: Anisocytosis SLIGHT = 6-15 cells HPF (0-5); Burr Cells SLIGHT = 2-5 cells HPF (0-1); Macrocytosis SLIGHT = 6-15 cells HPF (0-5); Platelet Adequacy Comment Platelets Decreased; Polychromasia SLIGHT = 2-3 cells HPF (0-2)
[2024-03-20 14:08] VITALS: BMI 24.3
[2024-03-20] MEDS: Magnesium 2 GM/50 ML(in water) 2 GM in Premix 1 BAG IVPB SCH (15:00)
[2024-03-20] MEDS: Sodium Chloride 0.9% 1,000 ML IV SCH (15:00)
[2024-03-20] MEDS: Lactulose 10 GM/15 ML Oral Solution PR SCH ×2 (16:03→23:35)
[2024-03-20 19:43] LABS: Hematocrit 31.6 % (42.0-52.0); Hemoglobin 10.2 g/dL (14.0-18.0); Platelet Count 120 10x3/uL (130-400)
[2024-03-20] MEDS: Ondansetron PF 4 MG/2 ML Vial IVP PRN (23:26)
[2024-03-20] MEDS: Pantoprazole 40 MG VIAL IVP SCH (23:37)
[2024-03-21 04:39] LABS: INR-International Normal Ratio 1.3; Prothrombin Time 16.1 sec (12.0-14.7)
[2024-03-21 04:40] LABS: PTT 31.5 sec (22.9-36.1)
[2024-03-21 04:46] LABS: ALT (SGPT) 23 U/L (8-55); AST (SGOT) 20 U/L (5-34); Albumin 2.3 g/dL (3.5-5.0); Alkaline Phosphatase 169 U/L (40-110); Bilirubin, Direct 0.9 mg/dL (0.1-0.3); Protein, Total 5.6 g/dL (6.0-8.3)
[2024-03-21 04:49] LABS: Hematocrit 29.6 % (42.0-52.0); Hemoglobin 9.3 g/dL (14.0-18.0); Platelet Count 89 10x3/uL (130-400)
[2024-03-21] MEDS: Pantoprazole 40 MG VIAL IVP SCH (08:50)
[2024-03-21] MEDS: Spironolactone 25 MG TAB PO SCH (08:50)
[2024-03-21] MEDS: Rifaximin 550 MG TAB PO SCH (09:49)
[2024-03-21 12:33] LABS: #Basophils Less than 0.03 10x3/uL (0.0-0.2); #Eosinphils Less than 0.03 10x3/uL (0.0-0.7); %Basophils 0.4 % (0.0-1.0); %Eosinophils 0.4 % (0.0-10.0); %Lymphocytes 8.9 % (21.0-51.0); %Monocytes 7.7 % (0.0-10.0); %Neutrophils 82.2 % (42.0-75.0); Hematocrit 29.5 % (42.0-52.0); Hemoglobin 9.1 g/dL (14.0-18.0); Mean Corpuscular HGB CONC 30.8 g/dL (32.0-36.0); Mean Corpuscular Hemoglobin 35.7 pg (27.0-31.0); Mean Corpuscular Volume 115.7 fL (78.0-98.0); Mean Platelet Volume 8.5 fL (7.4-10.4); Platelet Count 79 10x3/uL (130-400); RBC Distribution Width 17.6 % (11.5-14.5); Red Blood Cell (RBC) Count 2.55 mill/uL (4.70-6.10)
[2024-03-21 13:05] LABS: ALT (SGPT) 22 U/L (8-55); AST (SGOT) 24 U/L (5-34); Albumin 2.1 g/dL (3.5-5.0); Alkaline Phosphatase 156 U/L (40-110); Anion Gap 13 mmol/L (10-20); BUN (Urea Nitrogen) 27 mg/dL (8.9-20.6); Bilirubin, Total 1.8 mg/dL (0.2-1.2); Calc. Creatinine Clearance 93 mL/min (70-130); Calcium 8.2 mg/dL (7.8-10.44); Carbon Dioxide 18 mmol/L (22-29); Chloride 114 mmol/L (98-107); Estimated GFR 101; Globulin 3.6 g/dL (2.4-3.5); Glucose 106 mg/dL (70-105); Potassium 3.5 mmol/L (3.5-5.1); Protein, Total 5.7 g/dL (6.0-8.3); Sodium 141 mmol/L (136-145)
[2024-03-21] MEDS: Lactulose 20 GM (30 mL) UDCUP PO SCH (14:59)
[2024-03-21] MEDS ORDERED: Lidocaine 1% PF 5 ML VIAL ONE (15:37)
[2024-03-21 18:55] LABS: RBC Count-Automated (BF) 10200 /cu.mm; WBC/Nucleated-Auto (BF) 34 /cu.mm
[2024-03-21 18:58] LABS: BF Color Pink; Body Fluid Source Ascites Body Fluid; Clarity Hazy (Clear); Tube # EDTA
[2024-03-21 20:22] LABS: BF Segmented Neutrophils 68 %; Cell Count Non Hematic 6 %; Lymphocytes 26 %
[2024-03-21 20:24] LABS: Hemoglobin 8.9 g/dL (14.0-18.0); Platelet Count 102 10x3/uL (130-400)
[2024-03-21] MEDS: traMADol HCl 50 MG TAB PO PRN (21:26)
[2024-03-21] MEDS: Nadolol 40 MG TAB PO SCH (21:26)
[2024-03-22 06:10] LABS: Platelet Count 76 10x3/uL (130-400)
[2024-03-22] MEDS: Cyanocobalamin (Vitamin B-12) 1,000 MCG TAB PO SCH (08:18)
[2024-03-22] MEDS: Folic Acid 1 MG TAB PO SCH (08:18)
[2024-03-22 11:34] LABS: #Basophils Less than 0.03 10x3/uL (0.0-0.2); %Basophils 0.4 % (0.0-1.0); %Lymphocytes 9.3 % (21.0-51.0); %Monocytes 9.8 % (0.0-10.0); %Neutrophils 79.3 % (42.0-75.0); Hemoglobin 9.1 g/dL (14.0-18.0); Mean Corpuscular HGB CONC 31.4 g/dL (32.0-36.0); Mean Corpuscular Hemoglobin 34.7 pg (27.0-31.0); Mean Corpuscular Volume 110.7 fL (78.0-98.0); Mean Platelet Volume 8.8 fL (7.4-10.4); Platelet Count 79 10x3/uL (130-400); Red Blood Cell (RBC) Count 2.62 mill/uL (4.70-6.10)
[2024-03-22] MEDS: Furosemide 20 MG (2 mL) VIAL SLOW IVP SCH (11:57)
[2024-03-22 12:35] LABS: ALT (SGPT) 24 U/L (8-55); AST (SGOT) 19 U/L (5-34); Albumin 2.1 g/dL (3.5-5.0); Alkaline Phosphatase 149 U/L (40-110); Anion Gap 12 mmol/L (10-20); BUN (Urea Nitrogen) 26 mg/dL (8.9-20.6); Bilirubin, Total 1.3 mg/dL (0.2-1.2); Calc. Creatinine Clearance 96 mL/min (70-130); Calcium 7.8 mg/dL (7.8-10.44); Carbon Dioxide 17 mmol/L (22-29); Chloride 114 mmol/L (98-107); Estimated GFR 104; Globulin 3.5 g/dL (2.4-3.5); Glucose 150 mg/dL (70-105); Potassium 3.3 mmol/L (3.5-5.1); Protein, Total 5.6 g/dL (6.0-8.3); Sodium 140 mmol/L (136-145)
[2024-03-23 00:59] VITALS: TEMP 98
[2024-03-23 08:18] VITALS: BP 107/76
[2024-03-23] MEDS: Furosemide 20 MG (2 mL) VIAL SLOW IVP SCH (08:47)
[2024-03-23] MEDS: Potassium Chloride 20 MEQ TAB PO SCH (10:34)
== END 2024-03-23 11:03 | disposition home or self-care (01) | DRG 442 ==
LOC: ERS 09:32 → T4-B 12:48
PROVIDERS: ADMIT Internal Medicine; ATTEND Hospitalist
PROC: 0W9G3ZZ Drainage of Peritoneal Cavity, Percutaneous Approach (ICD-10-PCS; principal; 2024-03-21)
DX: K76.82 Hepatic encephalopathy (principal); D61.818 Other pancytopenia; R18.8 Other ascites; I85.10 Secondary esophageal varices without bleeding; K74.60 Unspecified cirrhosis of liver; K75.81 Nonalcoholic steatohepatitis (NASH); K40.90 Unilateral inguinal hernia, without obstruction or gangrene, not specified as recurrent; K72.10 Chronic hepatic failure without coma; D63.8 Anemia in other chronic diseases classified elsewhere; Z79.899 Other long term (current) drug therapy
CPT/HCPCS: 36415; 49083; 70450; 80053; 80076; 81001; 82140; 82274; 83605; 83690; 83735; 84443; 84484; 85014; 85018; 85025; 85049; 85060; 85610; 85730; 87070; 87205; 89051; 93005; J1940; J2405; J2470; J3475; J7030

== ENCOUNTER 2024-06-16 12:56 | Day surgery (SDC) | payer BC ==
[2024-06-16 13:22] LABS: #Basophils Less than 0.03 10x3/uL (0.0-0.2); %Basophils 0.6 % (0.0-1.0); %Eosinophils 3.1 % (0.0-10.0); %Lymphocytes 16.9 % (21.0-51.0); %Monocytes 12.8 % (0.0-10.0); %Neutrophils 66.3 % (42.0-75.0); Hemoglobin 7.4 g/dL (14.0-18.0); Mean Corpuscular HGB CONC 29.6 g/dL (32.0-36.0); Mean Corpuscular Hemoglobin 27.9 pg (27.0-31.0); Mean Corpuscular Volume 94.3 fL (78.0-98.0); Mean Platelet Volume 9.7 fL (7.4-10.4); Platelet Count 131 10x3/uL (130-400); RBC Distribution Width 16.3 % (11.5-14.5); Red Blood Cell (RBC) Count 2.65 mill/uL (4.70-6.10)
[2024-06-16 13:37] LABS: INR-International Normal Ratio 1.2; PTT 32.3 sec (22.9-36.1); Prothrombin Time 15.2 sec (12.0-14.7)
== END 2024-06-16 14:30 | disposition home or self-care (01) ==
LOC: ULT 12:56
PROVIDERS: ATTEND Internal Medicine
DX: K74.60 Unspecified cirrhosis of liver (principal); Z53.9 Procedure and treatment not carried out, unspecified reason; R18.8 Other ascites; K76.82 Hepatic encephalopathy; K65.2 Spontaneous bacterial peritonitis; K21.9 Gastro-esophageal reflux disease without esophagitis; K92.2 Gastrointestinal hemorrhage, unspecified; K76.0 Fatty (change of) liver, not elsewhere classified; I85.00 Esophageal varices without bleeding; F41.9 Anxiety disorder, unspecified; D64.9 Anemia, unspecified; Z90.49 Acquired absence of other specified parts of digestive tract; Z79.2 Long term (current) use of antibiotics; Z79.899 Other long term (current) drug therapy
CPT/HCPCS: 36415; 76705; 85025; 85610; 85730

== ENCOUNTER 2024-06-20 08:58 | Day surgery (SDC) | payer BC ==
[2024-06-20] MEDS ORDERED: Acetaminophen 500 MG TAB ONE (09:59)
[2024-06-20] MEDS ORDERED: diphenhydrAMINE 25 MG CAP ONE (10:00)
[2024-06-20] MEDS: Acetaminophen 500 MG TAB PO SCH (10:00)
[2024-06-20] MEDS: diphenhydrAMINE 25 MG CAP PO SCH (10:00)
[2024-06-20 13:20] VITALS: BP 117/77; TEMP 98.2
== END 2024-06-20 13:21 | disposition home or self-care (01) ==
LOC: ONC/OP 08:58
PROVIDERS: ATTEND Internal Medicine Hematology & Oncology
DX: D64.9 Anemia, unspecified (principal); K74.60 Unspecified cirrhosis of liver; R18.8 Other ascites; I85.00 Esophageal varices without bleeding; K76.82 Hepatic encephalopathy; F41.9 Anxiety disorder, unspecified; K65.2 Spontaneous bacterial peritonitis
CPT/HCPCS: 36430; 86850; 86900; 86901; P9016